=== PATIENT | female | born 1945 | race Caucasian/White ===

== ENCOUNTER 2018-06-02 22:11 | Inpatient (IN) ==
[2018-06-02] MEDS ORDERED: MoRPHine SULFATE 4 MG/ML 1 ML CARP\\VIAL IV STA (22:30)
[2018-06-02] MEDS ORDERED: ONDANSETRON INJ 2 MG/ML 2 ML VIAL IV STA (22:30)
[2018-06-02] MEDS ORDERED: SODIUM CHLORIDE 0.9% 1000ML 1,000 ML IV SCH (22:45)
[2018-06-02 23:19] LABS: Basophils # (auto) 0.01 K/uL (0-0.2); Basophils % (auto) 0.1 %; Hematocrit (blood only) 30.2 % (37-47); Hemoglobin 10.1 g/dL (12.0-16.0); Immature Granulocytes # (auto) 0.03 K/uL (0.00-0.02); Immature Granulocytes % (auto) 0.3 %; Lymphocytes # (auto) 0.48 K/uL (1.2-3.4); Lymphocytes % (auto) 4.4 %; Mean Corpuscular Hgb Conc 33.4 g/dL (32-36); Mean Corpuscular Volume 90.4 fL (80-100); Mean Platelet Volume 9.9 fL (7.4-10.4); Monocytes # (auto) 0.44 K/uL (0.11-0.59); Neutrophils # (auto) 10.04 K/uL (1.4-6.5); Neutrophils % (auto) 91.2 %; Platelet Count 222 K/uL (130-400); RDW Coefficient of Variation 13.6 % (11.5-14.5); RDW Standard Deviation 45.2 fL (36.4-46.3); Red Blood Count 3.34 M/uL (4.2-5.4)
[2018-06-02 23:38] LABS: Alanine Aminotransferase 24 U/L (12-78); Albumin Level 3.1 gm/dl (3.4-5.0); Aspartate Aminotransferase 23 U/L (15-37); BUN Creatinine Ratio 37.9 (10-20); Blood Urea Nitrogen 51 mg/dl (7-18); Calcium 8.4 mg/dl (8.5-10.1); Carbon Dioxide 25 mmol/L (21-32); Chloride 100 mmol/L (98-107); Est GFR (African American) 46.1; Est GFR (Non-African American) 39.8; Glucose 144 mg/dl (70-99); Potassium 3.8 mmol/L (3.5-5.1); Sodium 136 mmol/L (136-145)
[2018-06-02 23:41] LABS: Albumin Globulin Ratio 0.8 (0.9-2); Alkaline Phosphatase 79 U/L (45-117); Bilirubin,Total 0.4 mg/dl (0.2-1); Total Protein 7.1 gm/dl (6.4-8.2)
--- NOTE | 2018-06-03 01:10 | Emergency Department Note ---
History of Present Illness General Chief complaint: Vomiting Stated complaint: VOMITING, STOMACH PAIN Source: patient and family Mode of arrival: ambulatory Limitations: other (dementia) History of Present Illness Maximum Pain Intensity: 9 This patient is a 73-year-old female who presents to the emergency department accompanied by her granddaughters complaining of vomiting and abdominal pain. They report that last night, the patient began to have excessive thirst and started vomiting. Throughout the day today, she has complained of upper abdominal pain and has vomited multiple times. She has been unable to keep anything down. They report she has a history of small bowel obstructions which have presented similarly to this. Her pain is rated a 7/10. She has not had any medication for the symptoms. She states that nothing makes the symptoms better or worse. She has a history of prior hysterectomy for cervical cancer and cholecystectomy. She denies any diarrhea, chest pain or fevers. Home Medications Home Medications Medication Instructions Recorded Confirmed Type alprazolam 0.25 mg PO BID PRN 06/02/18 06/02/18 History atorvastatin 40 mg PO QAM 06/02/18 06/02/18 History cholecalciferol (vitamin D3) 5,000 unit PO QAM 06/02/18 06/02/18 History [Vitamin D3] docusate sodium [Colace] 100 mg PO QAM 06/02/18 06/02/18 History furosemide [Lasix] 20 mg PO QAM 06/02/18 06/02/18 History lisinopril 10 mg PO QAM 06/02/18 06/02/18 History memantine 10 mg PO BID 06/02/18 06/02/18 History potassium chloride 8 meq PO QAM 06/02/18 06/02/18 History triamterene-hydrochlorothiazid 1 tab PO QAM 06/02/18 06/02/18 History Allergies Allergy/AdvReac Type Severity Reaction Status Date / Time alcohol Allergy Severe Anaphylaxis Verified 06/02/18 22:51 Iodinated Contrast- Oral and Allergy Severe THROAT Verified 06/02/18 22:51 IV Dye JENNIFER SANCHEZ Past Med/Surg History Medical History History of hysterectomy Prediabetes Surgical History History of cholecystectomy Social History Communication Ability: Impaired Beliefs That Will Affect Care: None marital status: Current Living Situation: Alone Feels Safe at Home: Yes Safety Concerns: Feels Safe At This Time Smoking Status: Never smoker Hx Substance Use: No Review of Systems A total of 10 systems reviewed and were otherwise negative Physical Exam Vital Signs Vital Signs - 24 hr 06/02/18 22:16 06/02/18 23:46 06/03/18 01:00 Temperature 36.8 C Temperature Source Oral Sepsis Recent Fever Within 48 Hours No Sepsis New/Unexplained Change in Mental Status No Sepsis Action Taken by Nursing No Action Required Pulse Rate 98 H Pulse Rate [Apical] Pulse Rate [Right Finger] 98 H 98 H Pulse Rhythm Regular Pulse Rhythm [Apical] Pulse Rhythm [Right Finger] Regular Regular Pulse Strength Normal Pulse Strength [Apical] Pulse Strength [Right Finger] Normal Normal Respiratory Rate 18 16 16 Respiratory Effort / Characteristics Non-Labored Spontaneous Non-Labored Non-Labored Respiratory Depth Normal Normal Normal Respiratory Pattern Regular Regular Blood Pressure 139/76 Blood Pressure [Right Arm] 155/79 H 148/70 H Blood Pressure Mean 97 Blood Pressure Mean [Right Arm] 104 96 Blood Pressure Position Sitting Blood Pressure Position [Right Arm] Lying Pulse Oximetry 98 96 100 Oxygen Delivery Method Room Air Room Air Room Air 06/03/18 02:06 06/03/18 03:09 06/03/18 04:06 Temperature 36.9 C Temperature Source Oral Sepsis Recent Fever Within 48 Hours Sepsis New/Unexplained Change in Mental Status Sepsis Action Taken by Nursing Pulse Rate 96 H Pulse Rate [Apical] Pulse Rate [Right Finger] 96 H 97 H Pulse Rhythm Pulse Rhythm [Apical] Pulse Rhythm [Right Finger] Regular Regular Pulse Strength Pulse Strength [Apical] Pulse Strength [Right Finger] Normal Normal Respiratory Rate 16 16 18 Respiratory Effort / Characteristics Non-Labored Non-Labored Spontaneous Respiratory Depth Normal Normal Respiratory Pattern Regular Regular Blood Pressure 146/86 H Blood Pressure [Right Arm] 145/68 H 155/80 H Blood Pressure Mean Blood Pressure Mean [Right Arm] 93 105 Blood Pressure Position Blood Pressure Position [Right Arm] Lying Pulse Oximetry 98 96 96 Oxygen Delivery Method Room Air Room Air Room Air 06/03/18 07:20 06/03/18 07:28 06/03/18 11:29 Temperature 37.0 C 36.7 C Temperature Source Oral Oral Sepsis Recent Fever Within 48 Hours Sepsis New/Unexplained Change in Mental Status Sepsis Action Taken by Nursing Pulse Rate Pulse Rate [Apical] 94 H 94 H Pulse Rate [Right Finger] Pulse Rhythm Pulse Rhythm [Apical] Regular Regular Pulse Rhythm [Right Finger] Pulse Strength Pulse Strength [Apical] Normal Normal Pulse Strength [Right Finger] Respiratory Rate 18 18 Respiratory Effort / Characteristics Non-Labored Spontaneous Non-Labored Spontaneous Non-Labored Spontaneous Respiratory Depth Normal Normal Normal Respiratory Pattern Regular Regular Regular Blood Pressure Blood Pressure [Right Arm] 104/68 136/76 Blood Pressure Mean Blood Pressure Mean [Right Arm] 80 96 Blood Pressure Position Blood Pressure Position [Right Arm] Lying Lying Pulse Oximetry 94 94 Oxygen Delivery Method Room Air Room Air Room Air 06/03/18 15:01 Temperature 37.1 C Temperature Source Oral Sepsis Recent Fever Within 48 Hours Sepsis New/Unexplained Change in Mental Status Sepsis Action Taken by Nursing Pulse Rate Pulse Rate [Apical] Pulse Rate [Right Finger] 93 H Pulse Rhythm Pulse Rhythm [Apical] Pulse Rhythm [Right Finger] Regular Pulse Strength Pulse Strength [Apical] Pulse Strength [Right Finger] Normal Respiratory Rate 20 Respiratory Effort / Characteristics Non-Labored Respiratory Depth Normal Respiratory Pattern Regular Blood Pressure Blood Pressure [Right Arm] 149/79 H Blood Pressure Mean Blood Pressure Mean [Right Arm] 102 Blood Pressure Position Blood Pressure Position [Right Arm] Lying Pulse Oximetry 97 Oxygen Delivery Method Room Air VITALS: Vitals are noted on the nurse's note and reviewed by myself. Vital signs stable. GENERAL: This is a 73-year-old female, in no acute distress, nondiaphoretic, well-developed well-nourished. SKIN: The skin was without rashes. EARS: External auditory canals clear, tympanic membranes pearly abdullahi without erythema or effusion bilaterally. EYES: Pupils equal round and reactive to light and accommodation. MOUTH: Mucous membranes moist. Tonsils are not enlarged. Pharynx without erythema or exudate. NECK: Supple without nuchal rigidity. No lymphadenopathy. HEART: Regular rate and rhythm without murmurs gallops or rubs. LUNGS: Clear to auscultation bilaterally without wheezes, rales or rhonchi. No retractions or accessory muscle use. ABDOMEN: Hypoactive bowel sounds. Soft, nondistended. Tenderness to palpation across the upper abdomen. No guarding or rebound tenderness. EXTREMITIES: No pitting edema of the lower extremities. NEURO: Patient was alert and oriented to person and place. Course Consultations Consultation #1: [facility]. Landis [facility] hospitalist Administered Medications Enoxaparin Sodium (Lovenox) 40 mg SQ Q24H NGUYEN Stop: 07/03/18 03:47 Last Admin: 06/03/18 07:56 Dose: 40 mg Documented by: [id number] Sodium Chloride (Nss 1000ml) 1,000 mls @ 125 mls/hr IV .Q8H NGUYEN Stop: 06/04/18 03:47 Last Admin: 06/03/18 15:19 Dose: 125 mls/hr Documented by: [id number] Infusion: 06/03/18 13:06 Dose: 125 mls/hr Documented by: [id number] Infusion: 06/03/18 06:32 Dose: 125 mls/hr Documented by: [id number] Admin: 06/03/18 05:06 Dose: 125 mls/hr Documented by: [id number] Metronidazole (Flagyl) 500 mg in 100 mls @ 100 mls/hr IV Q8H NGUYEN Stop: 06/05/18 03:47 Last Infusion: 06/03/18 13:02 Dose: 0 mls/hr Documented by: [id number] Admin: 06/03/18 11:27 Dose: 100 mls/hr Documented by: [id number] Infusion: 06/03/18 06:15 Dose: 0 mls/hr Documented by: [id number] Admin: 06/03/18 05:06 Dose: 100 mls/hr Documented by: [id number] Lorazepam (Ativan) 0.25 mg in 0.5 mls @ 0.5 mls/min IV Q6HWA PRN PRN Reason: Anxiety/Agitation Stop: 07/03/18 03:47 Last Admin: 06/03/18 12:04 Dose: 0.5 mls/min Documented by: [id number] Ciprofloxacin (Cipro) 400 mg in 200 mls @ 100 mls/hr IV Q12H NGUYEN Stop: 06/05/18 03:59 Last Admin: 06/03/18 16:07 Dose: 100 mls/hr Documented by: [id number] Infusion: 06/03/18 13:02 Dose: 0 mls/hr Documented by: [id number] Admin: 06/03/18 05:07 Dose: 100 mls/hr Documented by: [id number] Discontinued Medications Sodium Chloride (Nss 1000ml) 1,000 mls @ 999 mls/hr IV .Q1H1M NGUYEN Stop: 06/02/18 23:45 Last Infusion: 06/03/18 00:44 Dose: 0 mls/hr Documented by: [id number] Admin: 06/02/18 23:32 Dose: 999 mls/hr Documented by: [id number] Miscellaneous (Patient's Height And/Or Weight Needed) 1 ea N/A Q2H NGUYEN Stop: 07/03/18 03:59 Last Admin: 06/03/18 04:36 Dose: Not Given Documented by: [id number] Morphine Sulfate (Morphine Sulfate) 4 mg IV NOW STA Stop: 06/02/18 22:31 Last Admin: 06/02/18 23:31 Dose: 4 mg Documented by: [id number] Ondansetron HCl (Zofran) 4 mg IV NOW STA Stop: 06/02/18 22:31 Last Admin: 06/02/18 23:32 Dose: 4 mg Documented by: [id number] Medical Decision Making Differential Diagnosis Differential diagnosis includes bowel obstruction, gastroenteritis, pancreatitis, colitis, among others. Home Medications Current Medication List: was personally reviewed by me Laboratory Data Attestation: I reviewed the patient's lab results. Result diagrams: 06/03/18 06:59 06/03/18 06:59 Lab Results 06/02/18 06/02/18 06/02/18 Range/Units 23:00 23:00 23:00 WBC 11.00 H (4.8-10.8) K/uL RBC 3.34 L (4.2-5.4) M/uL Hgb 10.1 L (12.0-16.0) g/dL Hct 30.2 L (37-47) % MCV 90.4 (80-100) fL MCH 30.2 (25-34) pg MCHC 33.4 (32-36) g/dL RDW Std Deviation 45.2 (36.4-46.3) fL RDW Coeff of Harpreet 13.6 (11.5-14.5) % Plt Count 222 (130-400) K/uL MPV 9.9 (7.4-10.4) fL Immature Gran % (Auto) 0.3 % Neut % (Auto) 91.2 % Lymph % (Auto) 4.4 % [place] % (Auto) 4.0 % Eos % (Auto) 0.0 % Baso % (Auto) 0.1 % Immature Gran # (Auto) 0.03 H (0.00-0.02) K/uL Neut # (Auto) 10.04 H (1.4-6.5) K/uL Lymph # (Auto) 0.48 L (1.2-3.4) K/uL [place] # (Auto) 0.44 (0.11-0.59) K/uL Eos # (Auto) 0.00 (0-0.5) K/uL Baso # (Auto) 0.01 (0-0.2) K/uL PT 10.2 (9.0-12.0) Seconds INR 1.0 (0.9-1.1) Sodium 136 (136-145) mmol/L Potassium 3.8 (3.5-5.1) mmol/L Chloride 100 (98-107) mmol/L Carbon Dioxide 25 (21-32) mmol/L Anion Gap 11.0 (3-11) BUN 51 H (7-18) mg/dl Creatinine 1.34 H (0.6-1.2) mg/dl Est Cr Clr Drug Dosing Not Reportable Est GFR ( Amer) 46.1 Est GFR (Non-Af Amer) 39.8 BUN/Creatinine Ratio 37.9 H (10-20) Glucose 144 H (70-99) mg/dl Estimat Average Glucose mg/dl Hemoglobin A1c (4.5-5.6) % Calcium 8.4 L (8.5-10.1) mg/dl Magnesium (1.8-2.4) mg/dl Total Bilirubin 0.4 (0.2-1) mg/dl AST 23 (15-37) U/L ALT 24 (12-78) U/L Alkaline Phosphatase 79 (45-117) U/L Total Protein 7.1 (6.4-8.2) gm/dl Albumin 3.1 L (3.4-5.0) gm/dl Globulin 4.0 (2.5-4.0) gm/dl Albumin/Globulin Ratio 0.8 L (0.9-2) Lipase 178 (73-393) U/L Urine Color Urine Appearance (Clear) Urine pH (4.5-7.5) Ur Specific [place] (1.000-1.030) Urine Protein (Negative) Urine Glucose (UA) (Negative) Urine Ketones (Negative) Urine Blood (Negative) Urine Nitrite (Negative) Urine Bilirubin (Negative) Urine Urobilinogen (Negative) Ur Leukocyte Esterase (Negative) Urine RBC (0-4) /hpf Urine WBC (0-5) /hpf Ur Epithelial Cells (0-5) /lpf Ur Renal Epithelial Cell (0-5) /lpf Urine Bacteria (Negative) Urine Yeast (None Prsent) 06/03/18 06/03/18 06/03/18 Range/Units 06:55 06:59 06:59 WBC 8.15 (4.8-10.8) K/uL RBC 2.98 L (4.2-5.4) M/uL Hgb 9.1 L (12.0-16.0) g/dL Hct 27.1 L (37-47) % MCV 90.9 (80-100) fL MCH 30.5 (25-34) pg MCHC 33.6 (32-36) g/dL RDW Std Deviation 45.9 (36.4-46.3) fL RDW Coeff of Harpreet 13.7 (11.5-14.5) % Plt Count 215 (130-400) K/uL MPV 10.2 (7.4-10.4) fL Immature Gran % (Auto) 0.1 % Neut % (Auto) 88.3 % Lymph % (Auto) 5.9 % [place] % (Auto) 5.6 % Eos % (Auto) 0.0 % Baso % (Auto) 0.1 % Immature Gran # (Auto) 0.01 (0.00-0.02) K/uL Neut # (Auto) 7.19 H (1.4-6.5) K/uL Lymph # (Auto) 0.48 L (1.2-3.4) K/uL [place] # (Auto) 0.46 (0.11-0.59) K/uL Eos # (Auto) 0.00 (0-0.5) K/uL Baso # (Auto) 0.01 (0-0.2) K/uL PT (9.0-12.0) Seconds INR (0.9-1.1) Sodium 136 (136-145) mmol/L Potassium 3.7 (3.5-5.1) mmol/L Chloride 102 (98-107) mmol/L Carbon Dioxide 27 (21-32) mmol/L Anion Gap 8.0 (3-11) BUN 45 H (7-18) mg/dl Creatinine 1.25 H (0.6-1.2) mg/dl Est Cr Clr Drug Dosing 46.1 Est GFR ( Amer) 50.1 Est GFR (Non-Af Amer) 43.2 BUN/Creatinine Ratio 36.3 H (10-20) Glucose 129 H (70-99) mg/dl Estimat Average Glucose 108 mg/dl Hemoglobin A1c 5.4 (4.5-5.6) % Calcium 8.3 L (8.5-10.1) mg/dl Magnesium 1.8 (1.8-2.4) mg/dl Total Bilirubin (0.2-1) mg/dl AST (15-37) U/L ALT (12-78) U/L Alkaline Phosphatase (45-117) U/L Total Protein (6.4-8.2) gm/dl Albumin (3.4-5.0) gm/dl Globulin (2.5-4.0) gm/dl Albumin/Globulin Ratio (0.9-2) Lipase (73-393) U/L Urine Color Urine Appearance (Clear) Urine pH (4.5-7.5) Ur Specific [place] (1.000-1.030) Urine Protein (Negative) Urine Glucose (UA) (Negative) Urine Ketones (Negative) Urine Blood (Negative) Urine Nitrite (Negative) Urine Bilirubin (Negative) Urine Urobilinogen (Negative) Ur Leukocyte Esterase (Negative) Urine RBC (0-4) /hpf Urine WBC (0-5) /hpf Ur Epithelial Cells (0-5) /lpf Ur Renal Epithelial Cell (0-5) /lpf Urine Bacteria (Negative) Urine Yeast (None Prsent) 06/03/18 Range/Units 09:45 WBC (4.8-10.8) K/uL RBC (4.2-5.4) M/uL Hgb (12.0-16.0) g/dL Hct (37-47) % MCV (80-100) fL MCH (25-34) pg MCHC (32-36) g/dL RDW Std Deviation (36.4-46.3) fL RDW Coeff of Harpreet (11.5-14.5) % Plt Count (130-400) K/uL MPV (7.4-10.4) fL Immature Gran % (Auto) % Neut % (Auto) % Lymph % (Auto) % [place] % (Auto) % Eos % (Auto) % Baso % (Auto) % Immature Gran # (Auto) (0.00-0.02) K/uL Neut # (Auto) (1.4-6.5) K/uL Lymph # (Auto) (1.2-3.4) K/uL [place] # (Auto) (0.11-0.59) K/uL Eos # (Auto) (0-0.5) K/uL Baso # (Auto) (0-0.2) K/uL PT (9.0-12.0) Seconds INR (0.9-1.1) Sodium (136-145) mmol/L Potassium (3.5-5.1) mmol/L Chloride (98-107) mmol/L Carbon Dioxide (21-32) mmol/L Anion Gap (3-11) BUN (7-18) mg/dl Creatinine (0.6-1.2) mg/dl Est Cr Clr Drug Dosing Est GFR ( Amer) Est GFR (Non-Af Amer) BUN/Creatinine Ratio (10-20) Glucose (70-99) mg/dl Estimat Average Glucose mg/dl Hemoglobin A1c (4.5-5.6) % Calcium (8.5-10.1) mg/dl Magnesium (1.8-2.4) mg/dl Total Bilirubin (0.2-1) mg/dl AST (15-37) U/L ALT (12-78) U/L Alkaline Phosphatase (45-117) U/L Total Protein (6.4-8.2) gm/dl Albumin (3.4-5.0) gm/dl Globulin (2.5-4.0) gm/dl Albumin/Globulin Ratio (0.9-2) Lipase (73-393) U/L Urine Color Yellow Urine Appearance Slightly Cloudy (Clear) Urine pH 6.0 (4.5-7.5) Ur Specific [place] 1.020 (1.000-1.030) Urine Protein Negative (Negative) Urine Glucose (UA) Negative (Negative) Urine Ketones Negative (Negative) Urine Blood 3+ H (Negative) Urine Nitrite Negative (Negative) Urine Bilirubin Negative (Negative) Urine Urobilinogen Negative (Negative) Ur Leukocyte Esterase 1+ H (Negative) Urine RBC 10-30 H (0-4) /hpf Urine WBC >30 H (0-5) /hpf Ur Epithelial Cells 20-30 H (0-5) /lpf Ur Renal Epithelial Cell 0-5 (0-5) /lpf Urine Bacteria 4+ H (Negative) Urine Yeast Present H (None Prsent) Imaging Data Attestation: I personally reviewed and interpreted this imaging study as follows: Radiologist's Impression: CT ABDOMEN & PELVIS Without Contrast: Distended small bowel loops and air-fluid levels. Could be from evolving small bowel obstruction. Followup will clarify. There may be some edema related to bowel loops in the right lower abdomen. Thickened and distended esophagus containing debris. Gastric distention. Appendix not identified. Cannot confirm a normal appendix or exclude appendiceal pathology. Hysterectomy. Radiologist: Milton Amaro M.D. Blood Pressure Blood Pressure Findings: Elevated blood pressure Blood Pressure Disposition: further management by hospitalist MDM Narrative The patient is a 73-year-old female who presents today complaining of abdominal pain similar to previous. Labs revealed a mild leukocytosis. Patient's creatinine is slightly elevated from baseline at 1.3. CT scan showed evidence of a developing small bowel obstruction. NG tube was inserted and placed on low intermittent suction. Patient's pain was treated with morphine and was given Zofran for nausea. [facility]. Attending Attestation: I Tolu Hayes MD independently saw and evaluated this patient and agree with history and physical is otherwise documented by the physician application assistant. See their note for full details. Impression & Plan Small bowel obstruction Discharge Plan Visit Data *Final* Discharge Date/Time: 06/03/18 03:09 Chief Complaint: Vomiting Stated Complaint: VOMITING, STOMACH PAIN ED Provider: Tolu Hayes ED Midlevel Provider: Sherita Lyons Discharge Problem: Small bowel obstruction Patient Disposition: Admitted As Inpatient Discharge Instructions Interventions: ED Discharge Assessment Last Done: 06/03/18 03:09
--- NOTE | 2018-06-03 02:28 | History & Physical Report ---
Date of Service June 03, 2018 Assessment & Plan (1) Small bowel obstruction: 73-year-old female who presents with intractable vomiting and abdominal pain, found to have small bowel obstruction on CT. Per report, patient has had at least 10 instances in her lifetime. Increased risk factors include prior abdominal surgeries. [facility] -Nonurgent consult general surgery placed -N.p.o. -NG tube placed successfully in the ED -Zofran PRN for nausea -Dilaudid as needed for pain -ciprofloxacin and Flagyl empiric antibiotics in setting of mild leukocytosis and obstruction. FEN/GI: NSS 125 ml/hr DVT ppx: Lovenox every 24 hours, SCDs CODE STATUS: Full code as discussed with granddaughters, although they state they are not sure of patient's wishes. Patient's daughter is POA. DISPO: MedSurg Present on Admission?: Yes (2) CKD (chronic kidney disease) stage 3, GFR 30-59 ml/min: Elevated creatinine in setting of dehydration and vomiting. Fluids as above. Follow BMP. Avoid nephrotoxic agents. (3) Elevated serum creatinine: As above (4) Vomiting: Zofran as needed as above (5) Benign essential hypertension: Will hold home NIYA inhibitor and triamterene hydrochlorothiazide in light of elevated creatinine -Hydralazine 10 mg IV every 4 hours as needed for systolic blood pressure over 170 or diastolic blood pressure over 100. (6) Dementia: Hold home p.o. memantine. Sitter as needed. -Granddaughter states she does become easily confused, her phone number is available on patient's chart and she should be contacted to help orient patient. (7) Anxiety: Hold home p.o. alprazolam. -Ativan as needed, qhs. History of Present Illness Chief Complaint: Intractable vomiting, abdominal pain Primary Care Provider: Earle Griffin Johnson Madrigal is a 73-year-old female with past medical history of CKD stage III, history of cervical cancer recurrent status post total hysterectomy, status post cholecystectomy, hypertension, history of lower left extremity DVT, with advanced dementia who presents to the emergency room with HER-2 granddaughters due to intractable vomiting. Vomiting and abdominal pain began suddenly the night prior to admission. Per granddaughters, patient has had at least 10 episodes of small bowel obstruction in her lifetime. 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 No fevers or chills with this, no syncope, no chest pain. Decreased p.o. intake. No diarrhea. Past medical history: As above Past surgical history: As above Social history: Lives at home with 1 of her granddaughters, other granddaughter lives 3 doors down and her daughter also lives close. Does not drink alcohol or smoke. Severely demented. Allergies Allergy/AdvReac Type Severity Reaction Status Date / Time alcohol Allergy Severe Anaphylaxis Verified 06/02/18 22:51 Iodinated Contrast- Oral and Allergy Severe THROAT Verified 06/02/18 22:51 IV Dye SWELLS, HIVES Home Medications Home Medications Medication Instructions Recorded Confirmed Type alprazolam 0.25 mg PO BID PRN 06/02/18 06/02/18 History atorvastatin 40 mg PO QAM 06/02/18 06/02/18 History cholecalciferol (vitamin D3) 5,000 unit PO QAM 06/02/18 06/02/18 History [Vitamin D3] docusate sodium [Colace] 100 mg PO QAM 06/02/18 06/02/18 History furosemide [Lasix] 20 mg PO QAM 06/02/18 06/02/18 History lisinopril 10 mg PO QAM 06/02/18 06/02/18 History memantine 10 mg PO BID 06/02/18 06/02/18 History potassium chloride 8 meq PO QAM 06/02/18 06/02/18 History triamterene-hydrochlorothiazid 1 tab PO QAM 06/02/18 06/02/18 History Past Med/Surg History Medical History History of hysterectomy Prediabetes Surgical History History of cholecystectomy Social History Preferred Language: Serbian Communication Ability: Effective Pharmaceutical Development Technician Required: No Beliefs That Will Affect Care: None Current Living Situation: Alone Feels Safe at Home: Yes Safety Concerns: Feels Safe At This Time Smoking Status: Never smoker Hx Substance Use: No Review of Systems Unobtainable due to cognitive status Physical Exam Vital Signs (Past 24 Hours): Last Vital Signs Temp 36.8 C 06/02/18 22:16 Pulse 96 H 06/03/18 02:06 Resp 16 06/03/18 02:06 BP 145/68 H 06/03/18 02:06 Pulse Ox 98 06/03/18 02:06 Physical Exam: Vitals noted as above and within normal limits with the exception of hypertension. GENERAL: Somnolent but arousable and , nontoxic-appearing, in no distress. Granddaughter is at bedside. States she has severe dementia. HENT: Normocephalic, atraumatic. Nasogastric tube in place. NECK: Supple. Full range of motion. No JVD RESPIRATORY: Clear to auscultation. Normal work of breathing. CARDIAC: Regular rate, normal rhythm. Extremities warm and well perfused, 2+ radial pulses bilaterally; 2+ posterior tibialis pulses bilaterally. ABDOMEN: Soft, non-distended. No masses. Bowel sounds are hypoactive. LOWER EXTREMITIES: Inspection of calves reveal left larger than right, granddaughter states this is chronic. They are non-tender. Trace edema. No discoloration. NEURO: Not able to follow commands at present time.. . . SKIN: Rash not present. No jaundice noted. Significant lesions not present. PSYCH: Dementia. Exam as done by Nivia Domingo MD, Immigration Case Manager. Results & Data Laboratory Results 06/02/18 06/02/18 Range/Units 23:00 23:00 WBC 11.00 H (4.8-10.8) K/uL RBC 3.34 L (4.2-5.4) M/uL Hgb 10.1 L (12.0-16.0) g/dL Hct 30.2 L (37-47) % MCV 90.4 (80-100) fL MCH 30.2 (25-34) pg MCHC 33.4 (32-36) g/dL RDW Std Deviation 45.2 (36.4-46.3) fL RDW Coeff of Harpreet 13.6 (11.5-14.5) % Plt Count 222 (130-400) K/uL MPV 9.9 (7.4-10.4) fL Immature Gran % (Auto) 0.3 % Neut % (Auto) 91.2 % Lymph % (Auto) 4.4 % [place] % (Auto) 4.0 % Eos % (Auto) 0.0 % Baso % (Auto) 0.1 % Immature Gran # (Auto) 0.03 H (0.00-0.02) K/uL Neut # (Auto) 10.04 H (1.4-6.5) K/uL Lymph # (Auto) 0.48 L (1.2-3.4) K/uL [place] # (Auto) 0.44 (0.11-0.59) K/uL Eos # (Auto) 0.00 (0-0.5) K/uL Baso # (Auto) 0.01 (0-0.2) K/uL Sodium 136 (136-145) mmol/L Potassium 3.8 (3.5-5.1) mmol/L Chloride 100 (98-107) mmol/L Carbon Dioxide 25 (21-32) mmol/L Anion Gap 11.0 (3-11) BUN 51 H (7-18) mg/dl Creatinine 1.34 H (0.6-1.2) mg/dl Est Cr Clr Drug Dosing Not Reportable Est GFR ( Amer) 46.1 Est GFR (Non-Af Amer) 39.8 BUN/Creatinine Ratio 37.9 H (10-20) Glucose 144 H (70-99) mg/dl Calcium 8.4 L (8.5-10.1) mg/dl Total Bilirubin 0.4 (0.2-1) mg/dl AST 23 (15-37) U/L ALT 24 (12-78) U/L Alkaline Phosphatase 79 (45-117) U/L Total Protein 7.1 (6.4-8.2) gm/dl Albumin 3.1 L (3.4-5.0) gm/dl Globulin 4.0 (2.5-4.0) gm/dl Albumin/Globulin Ratio 0.8 L (0.9-2) Lipase 178 (73-393) U/L Diagnostic Findings CT ABDOMEN & PELVIS Without Contrast: Distended small bowel loops and air-fluid levels. Could be from evolving small bowel obstruction. Followup will clarify. There may be some edema related to bowel loops in the right lower abdomen. Thickened and distended esophagus containing debris. Gastric distention. Appendix not identified. Cannot confirm a normal appendix or exclude appendiceal pathology. Hysterectomy. Radiologist: Milton Amaro M.D. Medications Administered 4 mg morphine, 4 mg Zofran, 1 L bolus NSS. ECG Change: no significant change Supervising Physician Co-Signing Physician Notes Attending addendum: I have physically seen this patient, have supervised the medical residents activities, and agree with the H&P unless as otherwise noted. Assessment and Plan: Recurrent small bowel obstruction-- Admit to [facility]. NPO NSS 125 mL's per hour Pantoprazole 40 mg IV daily. Zofran 4 mg IV every 6 hours as needed. Cipro 400 mg IV every 12 hours. Flagyl 500 mg IV every 8 hours. Acetaminophen 1000mg IV every 8 hours as needed mild pain or temperature. Consult general surgery. Hypertension/acute kidney injury-- Hold furosemide, lisinopril and triamterene HCTZ. Hydralazine 10 mg IV every 4 hours IV as needed. Remainder of orders and notations as noted. Resident Activity Tracking Resident Involvement: Resident Care Provided Care Provided: Adult Hospital Medicine
[2018-06-03] MEDS ORDERED: ONDANSETRON INJ 2 MG/ML 2 ML VIAL IV PRN (03:48)
[2018-06-03] MEDS ORDERED: HYDROmorphone INJ 1 MG/ML SYRINGE IV PRN (03:48)
[2018-06-03] MEDS ORDERED: HydrALAZINE HCL 20 MG/ML VIAL IV PRN (03:48)
[2018-06-03] MEDS ORDERED: PATIENT'S HEIGHT AND/OR WEIGHT NEEDED SCH (04:00)
[2018-06-03 04:31] LABS: Prothrombin Time 10.2 Seconds (9.0-12.0)
[2018-06-03] MEDS: metroNIDAZOLE 500 MG/100 ML BAG IV SCH ×3 (05:06→20:38)
[2018-06-03] MEDS: SODIUM CHLORIDE 0.9% 1000ML 1,000 ML IV SCH ×2 (05:06→15:19)
[2018-06-03] MEDS: CIPROFLOXACIN 400 MG/200 ML BAG IV SCH ×2 (05:07→16:07)
--- NOTE | 2018-06-03 06:46 | CT Scan Report ---
CT SCAN OF THE ABDOMEN AND PELVIS WITHOUT CONTRAST CLINICAL HISTORY: Abdominal pain and vomiting. History of small bowel obstruction. COMPARISON STUDY: No previous studies for comparison. TECHNIQUE: CT scan of the abdomen and pelvis was performed from the lung bases to the proximal femurs . Images are reviewed in the axial, sagittal, and coronal planes. IV contrast was not administered fo r this examination. A dose lowering technique was utilized adhering to the principles of ALARA. CT DOSE: 1574.23 mGy.cm FINDINGS: Lower chest: There is left lower lobe atelectasis/consolidation. Right lower lobe atelectatic changes are also evident. There is a small hiatal hernia. There is a trace left pleural effusion. Liver: The unenhanced liver is normal in size, contour, and attenuation. There is no intrahepatic javier iary ductal dilatation. Gallbladder: Not visualized and presumed surgically absent Spleen: Normal in size and attenuation. Pancreas: Unremarkable. Adrenal glands: Unremarkable. Kidneys: No renal, ureteral, or bladder calculi are visualized. There is a 12 mm left renal cyst. Bowel: There are multiple dilated small bowel loops containing air-fluid levels. The colon is relativ alanis decompressed. The findings are consistent with a small bowel obstruction. There is minimal infilt ration of the mesenteric fat within the right lower quadrant. There are multiple colonic diverticula. There are no findings to indicate acute diverticulitis. The appendix is not visualized. Peritoneum: There is no intraperitoneal free air or abdominal ascites. Vasculature: The abdominal aorta is normal in course and caliber. Adenopathy: None. Pelvic viscera: The uterus is surgically absent. The bladder is mildly distended. Skeletal structures: No destructive osseous lesions are seen. IMPRESSION: 1. Small bowel obstructive pattern with mild right lower quadrant mesenteric edema 2. Hiatal hernia with debris contained within distal esophagus 3. No renal, ureteral, or bladder calculi identified 4. Diverticulosis. No evidence of acute diverticulitis 5. Nonvisualization of the appendix 6. Surgically absent gallbladder and uterus Electronically signed by: Darrell Mcgovern M.D. 06/03/2018 6:44 AM
[2018-06-03] MEDS: ENOXAPARIN INJ 40 MG/0.4 ML SYR SQ SCH (07:56)
[2018-06-03 08:57] LABS: Basophils # (auto) 0.01 K/uL (0-0.2); Basophils % (auto) 0.1 %; Hematocrit (blood only) 27.1 % (37-47); Hemoglobin 9.1 g/dL (12.0-16.0); Immature Granulocytes # (auto) 0.01 K/uL (0.00-0.02); Immature Granulocytes % (auto) 0.1 %; Lymphocytes # (auto) 0.48 K/uL (1.2-3.4); Lymphocytes % (auto) 5.9 %; Mean Corpuscular Volume 90.9 fL (80-100); Mean Platelet Volume 10.2 fL (7.4-10.4); Monocytes # (auto) 0.46 K/uL (0.11-0.59); Monocytes % (auto) 5.6 %; Neutrophils # (auto) 7.19 K/uL (1.4-6.5); Neutrophils % (auto) 88.3 %; Platelet Count 215 K/uL (130-400); RDW Coefficient of Variation 13.7 % (11.5-14.5); RDW Standard Deviation 45.9 fL (36.4-46.3); Red Blood Count 2.98 M/uL (4.2-5.4); White Blood Count 8.15 K/uL (4.8-10.8)
[2018-06-03 08:59] LABS: BUN Creatinine Ratio 36.3 (10-20); Calcium 8.3 mg/dl (8.5-10.1); Creatinine Clr Calc Pharmacy 46.1 ml/min; Est GFR (African American) 50.1; Est GFR (Non-African American) 43.2; Magnesium 1.8 mg/dl (1.8-2.4); Potassium 3.7 mmol/L (3.5-5.1)
[2018-06-03 09:05] LABS: Mean Corpuscular Hgb Conc 33.6 g/dL (32-36)
[2018-06-03 09:51] LABS: Estimated Average Glucose 108 mg/dl; Hemoglobin A1C 5.4 % (4.5-5.6)
[2018-06-03 10:15] LABS: Appearance Urine Slightly Cloudy (Clear); Bilirubin Urine Negative (Negative); Blood Urine 3+ (Negative); Color Urine Yellow; Glucose Urine UA Negative (Negative); Ketones Urine Negative (Negative); Leukocyte Esterase Urine 1+ (Negative); Nitrite Urine Negative (Negative); Protein Urine Negative (Negative); Urobilinogen Urine Negative (Negative)
[2018-06-03 10:25] LABS: Bacteria Urine 4+ (Negative); Epithelial Cell Urine 20-30 /lpf (0-5); WBC Urine >30 /hpf (0-5)
[2018-06-03 10:27] LABS: Renal Epithelial Cells Urine 0-5 /lpf (0-5)
[2018-06-03] MEDS: LORazepam 0.25 MG/0.5 ML VIAL IV PRN ×2 (12:04→18:43)
[2018-06-03] MEDS ORDERED: CIPROFLOXACIN 400 MG/200 ML BAG IV SCH (16:00)
--- NOTE | 2018-06-03 17:03 | Hospitalist Progress Note ---
Date of Service June 03, 2018 Assessment & Plan (1) Small bowel obstruction: (2) CKD (chronic kidney disease) stage 3, GFR 30-59 ml/min: (3) Elevated serum creatinine: (4) Vomiting: (5) Benign essential hypertension: (6) Dementia: (7) Anxiety: 73-year-old female Was admitted because of a bowel obstruction associated with intractable vomiting and abdominal pain, Per report, patient has had at least 10 instances Of bowel obstructionin her lifetime. Increased risk factors include prior abdominal surgeries. Bowel obstruction, Because patient no more nausea vomiting abdominal is soft nontender, Although the NG tube was self removed, will not to reinsert it for now Need to reinsert if patient has recurrent symptom of nausea vomiting abdominal pain Follow-up surgical input -N.p.o. -NG tube placed successfully in the ED -Zofran PRN for nausea -Dilaudid as needed for pain -Continue ciprofloxacin and Flagyl empiric antibiotics in setting of mild leukocytosis and obstruction. Acute kidney injuryon CKD, improving Possible UTI: It is covered by [employer], We will follow culture results Mild accelerated hypertension, will continue follow-up Dementia anxiety, stable continue current medication CODE STATUS: Full code Family name is Rhonda #[id number], Was updated over the phone (5) Benign essential hypertension: Subjective Was on NG tube suctioning, however per report after arriving to the floor from the emergency room there were only 50 ml came out Patient has no nausea vomiting, Denies abdominal pain Later nursing staff reported patient removed NG tube by herself Review of system is limited because patient has dementia No fever and chill Denies chest pain Denies cough or sputum Physical Exam Vital Signs (Past 24 Hours): Last Vital Signs Temp 37.1 C 06/03/18 15:01 Pulse 93 H 06/03/18 15:01 Resp 20 06/03/18 15:01 BP 149/79 H 06/03/18 15:01 Pulse Ox 97 06/03/18 15:01 Physical Exam: General Appearance: WD/WN, pleasant, and mild confused, no apparent distress, NG tube was in place, Eyes: normal inspection, PERRL, EOMI, sclerae normal ENT: normal ENT inspection, hearing grossly normal, pharynx normal Neck: supple, no adenopathy, thyroid normal, no JVD, no carotid bruits, trachea midline Respiratory/Chest: chest non-tender, normal breath sounds, no respiratory distress, no accessory muscle use, breath sounds, rales, wheezing Cardiovascular: regular rate, rhythm, no JVD, no murmur Abdomen: bowel sound+, non tender, soft, no organomegaly, Extremities: normal range of motion, non-tender, normal inspection, no pedal edema, no calf tenderness, normal capillary refill, pelvis stable, joint has no limited range of motion, capillary refill is normal, no cyanosis clubbing Neurologic/Psychiatric: central office operator II-XII nml as tested, no motor/sensory deficits, alert, normal mood/affect, Skin: normal color, warm/dry, no rash Lymphatic: no adenopathy Results & Data Laboratory Results Laboratory Results - last 24 hr 06/02/18 06/02/18 06/02/18 23:00 23:00 23:00 WBC 11.00 H RBC 3.34 L Hgb 10.1 L Hct 30.2 L MCV 90.4 MCH 30.2 MCHC 33.4 RDW Std Deviation 45.2 RDW Coeff of Harpreet 13.6 Plt Count 222 MPV 9.9 Immature Gran % (Auto) 0.3 Neut % (Auto) 91.2 Lymph % (Auto) 4.4 [place] % (Auto) 4.0 Eos % (Auto) 0.0 Baso % (Auto) 0.1 Immature Gran # (Auto) 0.03 H Neut # (Auto) 10.04 H Lymph # (Auto) 0.48 L [place] # (Auto) 0.44 Eos # (Auto) 0.00 Baso # (Auto) 0.01 PT 10.2 INR 1.0 Sodium 136 Potassium 3.8 Chloride 100 Carbon Dioxide 25 Anion Gap 11.0 BUN 51 H Creatinine 1.34 H Est Cr Clr Drug Dosing Not Reportable Est GFR ( Amer) 46.1 Est GFR (Non-Af Amer) 39.8 BUN/Creatinine Ratio 37.9 H Glucose 144 H Estimat Average Glucose Hemoglobin A1c Calcium 8.4 L Magnesium Total Bilirubin 0.4 AST 23 ALT 24 Alkaline Phosphatase 79 Total Protein 7.1 Albumin 3.1 L Globulin 4.0 Albumin/Globulin Ratio 0.8 L Lipase 178 Urine Color Urine Appearance Urine pH Ur Specific Bernard Urine Protein Urine Glucose (UA) Urine Ketones Urine Blood Urine Nitrite Urine Bilirubin Urine Urobilinogen Ur Leukocyte Esterase Urine RBC Urine WBC Ur Epithelial Cells Ur Renal Epithelial Cell Urine Bacteria Urine Yeast 06/03/18 06/03/18 06/03/18 06:55 06:59 06:59 WBC 8.15 RBC 2.98 L Hgb 9.1 L Hct 27.1 L MCV 90.9 MCH 30.5 MCHC 33.6 RDW Std Deviation 45.9 RDW Coeff of Harpreet 13.7 Plt Count 215 MPV 10.2 Immature Gran % (Auto) 0.1 Neut % (Auto) 88.3 Lymph % (Auto) 5.9 [place] % (Auto) 5.6 Eos % (Auto) 0.0 Baso % (Auto) 0.1 Immature Gran # (Auto) 0.01 Neut # (Auto) 7.19 H Lymph # (Auto) 0.48 L [place] # (Auto) 0.46 Eos # (Auto) 0.00 Baso # (Auto) 0.01 PT INR Sodium 136 Potassium 3.7 Chloride 102 Carbon Dioxide 27 Anion Gap 8.0 BUN 45 H Creatinine 1.25 H Est Cr Clr Drug Dosing 46.1 Est GFR ( Amer) 50.1 Est GFR (Non-Af Amer) 43.2 BUN/Creatinine Ratio 36.3 H Glucose 129 H Estimat Average Glucose 108 Hemoglobin A1c 5.4 Calcium 8.3 L Magnesium 1.8 Total Bilirubin AST ALT Alkaline Phosphatase Total Protein Albumin Globulin Albumin/Globulin Ratio Lipase Urine Color Urine Appearance Urine pH Ur Specific Bernard Urine Protein Urine Glucose (UA) Urine Ketones Urine Blood Urine Nitrite Urine Bilirubin Urine Urobilinogen Ur Leukocyte Esterase Urine RBC Urine WBC Ur Epithelial Cells Ur Renal Epithelial Cell Urine Bacteria Urine Yeast 06/03/18 09:45 WBC RBC Hgb Hct MCV MCH MCHC RDW Std Deviation RDW Coeff of Harpreet Plt Count MPV Immature Gran % (Auto) Neut % (Auto) Lymph % (Auto) [place] % (Auto) Eos % (Auto) Baso % (Auto) Immature Gran # (Auto) Neut # (Auto) Lymph # (Auto) [place] # (Auto) Eos # (Auto) Baso # (Auto) PT INR Sodium Potassium Chloride Carbon Dioxide Anion Gap BUN Creatinine Est Cr Clr Drug Dosing Est GFR ( Amer) Est GFR (Non-Af Amer) BUN/Creatinine Ratio Glucose Estimat Average Glucose Hemoglobin A1c Calcium Magnesium Total Bilirubin AST ALT Alkaline Phosphatase Total Protein Albumin Globulin Albumin/Globulin Ratio Lipase Urine Color Yellow Urine Appearance Slightly Cloudy Urine pH 6.0 Ur Specific Bernard 1.020 Urine Protein Negative Urine Glucose (UA) Negative Urine Ketones Negative Urine Blood 3+ H Urine Nitrite Negative Urine Bilirubin Negative Urine Urobilinogen Negative Ur Leukocyte Esterase 1+ H Urine RBC 10-30 H Urine WBC >30 H Ur Epithelial Cells 20-30 H Ur Renal Epithelial Cell 0-5 Urine Bacteria 4+ H Urine Yeast Present H
--- NOTE | 2018-06-03 19:35 | Surgery Consultation ---
Date of Consultation June 03, 2018 Assessment & Plan (1) Small bowel obstruction: This patient had nausea and vomiting associated with a CT scan demonstrating possible small bowel obstruction with dilated small bowel loops. She no longer has abdominal pain and has not had no vomiting since she arrived. Obtaining a very accurate history was difficult. She did have a small bowel movement earlier today. I would continue with conservative measures and keeping her n.p.o. for now. If she continues to have bowel movements or pass gas then her diet can be advanced as tolerated. Present on Admission?: Yes History of Present Illness Reason for Consultation: Nausea vomiting and possible small bowel obstruction Requesting Physician: Jaime Smith MD, PhD, [facility] Attending Physician: Jaime Smith MD, PhD, [facility] History of Present Illness I been asked by Dr. Smith to see this 73-year-old female who has severe dementia. She was not able to provide a history and so the history was obtained from nursing and from the chart. The patient has been admitted on multiple occasions with bowel obstruction all of which have resolved spontaneously. She had some nausea and vomiting with abdominal pain over the last 1-2 days. She underwent a CT scan that demonstrated dilated small bowel loops but no transition point was noted. She initially had an NG tube placed but she has removed it. She she had the present denies abdominal pain. She has not had any nausea or vomiting. She had a small bowel movement earlier today. The only abdominal surgery listed was a cholecystectomy. She could not relay whether she had any other operations. Allergies Allergy/AdvReac Type Severity Reaction Status Date / Time alcohol Allergy Severe Anaphylaxis Verified 06/02/18 22:51 Iodinated Contrast- Oral and Allergy Severe THROAT Verified 06/02/18 22:51 IV Dye JENNIFER SANCHEZ Home Medications Home Medications Medication Instructions Recorded Confirmed Type alprazolam 0.25 mg PO BID PRN 06/02/18 06/02/18 History atorvastatin 40 mg PO QAM 06/02/18 06/02/18 History cholecalciferol (vitamin D3) 5,000 unit PO QAM 06/02/18 06/02/18 History [Vitamin D3] docusate sodium [Colace] 100 mg PO QAM 06/02/18 06/02/18 History furosemide [Lasix] 20 mg PO QAM 06/02/18 06/02/18 History lisinopril 10 mg PO QAM 06/02/18 06/02/18 History memantine 10 mg PO BID 06/02/18 06/02/18 History potassium chloride 8 meq PO QAM 06/02/18 06/02/18 History triamterene-hydrochlorothiazid 1 tab PO QAM 06/02/18 06/02/18 History Patient History Medical History History of hysterectomy Prediabetes Surgical History History of cholecystectomy Social History Communication Ability: Impaired Beliefs That Will Affect Care: None marital status: Current Living Situation: Alone Feels Safe at Home: Yes Safety Concerns: Feels Safe At This Time Smoking Status: Never smoker Hx Substance Use: No Review of Systems Difficult to obtain due to the patient's dementia Physical Exam Vital Signs (Past 24 Hours): Last Vital Signs Temp 37.1 C 06/03/18 15:01 Pulse 93 H 06/03/18 15:01 Resp 20 06/03/18 15:01 BP 149/79 H 06/03/18 15:01 Pulse Ox 97 06/03/18 15:01 Constitutional: no acute distress Neck: trachea midline, no thyromegaly Respiratory: normal respiratory effort, lungs clear to auscultation Cardiovascular: Rate/Rhythm: regular rate and regular rhythm Gastrointestinal (Abdomen): Inspection/Auscultation: normal bowel sounds; abdomen not distended Percussion/Palpation: abdomen soft; abdomen nontender Lymphatic: no cervical lymphadenopathy Results & Data Laboratory Results 06/03/18 06/03/18 06/03/18 Range/Units 09:45 06:59 06:59 WBC 8.15 (4.8-10.8) K/uL RBC 2.98 L (4.2-5.4) M/uL Hgb 9.1 L (12.0-16.0) g/dL Hct 27.1 L (37-47) % MCV 90.9 (80-100) fL MCH 30.5 (25-34) pg MCHC 33.6 (32-36) g/dL RDW Std Deviation 45.9 (36.4-46.3) fL RDW Coeff of Harpreet 13.7 (11.5-14.5) % Plt Count 215 (130-400) K/uL MPV 10.2 (7.4-10.4) fL Immature Gran % (Auto) 0.1 % Neut % (Auto) 88.3 % Lymph % (Auto) 5.9 % [place] % (Auto) 5.6 % Eos % (Auto) 0.0 % Baso % (Auto) 0.1 % Immature Gran # (Auto) 0.01 (0.00-0.02) K/uL Neut # (Auto) 7.19 H (1.4-6.5) K/uL Lymph # (Auto) 0.48 L (1.2-3.4) K/uL [place] # (Auto) 0.46 (0.11-0.59) K/uL Eos # (Auto) 0.00 (0-0.5) K/uL Baso # (Auto) 0.01 (0-0.2) K/uL PT (9.0-12.0) Seconds INR (0.9-1.1) Sodium 136 (136-145) mmol/L Potassium 3.7 (3.5-5.1) mmol/L Chloride 102 (98-107) mmol/L Carbon Dioxide 27 (21-32) mmol/L Anion Gap 8.0 (3-11) BUN 45 H (7-18) mg/dl Creatinine 1.25 H (0.6-1.2) mg/dl Est Cr Clr Drug Dosing 46.1 Est GFR ( Amer) 50.1 Est GFR (Non-Af Amer) 43.2 BUN/Creatinine Ratio 36.3 H (10-20) Glucose 129 H (70-99) mg/dl Estimat Average Glucose mg/dl Hemoglobin A1c (4.5-5.6) % Calcium 8.3 L (8.5-10.1) mg/dl Magnesium 1.8 (1.8-2.4) mg/dl Total Bilirubin (0.2-1) mg/dl AST (15-37) U/L ALT (12-78) U/L Alkaline Phosphatase (45-117) U/L Total Protein (6.4-8.2) gm/dl Albumin (3.4-5.0) gm/dl Globulin (2.5-4.0) gm/dl Albumin/Globulin Ratio (0.9-2) Lipase (73-393) U/L Urine Color Yellow Urine Appearance Slightly Cloudy (Clear) Urine pH 6.0 (4.5-7.5) Ur Specific [place] 1.020 (1.000-1.030) Urine Protein Negative (Negative) Urine Glucose (UA) Negative (Negative) Urine Ketones Negative (Negative) Urine Blood 3+ H (Negative) Urine Nitrite Negative (Negative) Urine Bilirubin Negative (Negative) Urine Urobilinogen Negative (Negative) Ur Leukocyte Esterase 1+ H (Negative) Urine RBC 10-30 H (0-4) /hpf Urine WBC >30 H (0-5) /hpf Ur Epithelial Cells 20-30 H (0-5) /lpf Ur Renal Epithelial Cell 0-5 (0-5) /lpf Urine Bacteria 4+ H (Negative) Urine Yeast Present H (None Prsent) 06/03/18 06/02/18 06/02/18 Range/Units 06:55 23:00 23:00 WBC (4.8-10.8) K/uL RBC (4.2-5.4) M/uL Hgb (12.0-16.0) g/dL Hct (37-47) % MCV (80-100) fL MCH (25-34) pg MCHC (32-36) g/dL RDW Std Deviation (36.4-46.3) fL RDW Coeff of Harpreet (11.5-14.5) % Plt Count (130-400) K/uL MPV (7.4-10.4) fL Immature Gran % (Auto) % Neut % (Auto) % Lymph % (Auto) % [place] % (Auto) % Eos % (Auto) % Baso % (Auto) % Immature Gran # (Auto) (0.00-0.02) K/uL Neut # (Auto) (1.4-6.5) K/uL Lymph # (Auto) (1.2-3.4) K/uL [place] # (Auto) (0.11-0.59) K/uL Eos # (Auto) (0-0.5) K/uL Baso # (Auto) (0-0.2) K/uL PT 10.2 (9.0-12.0) Seconds INR 1.0 (0.9-1.1) Sodium 136 (136-145) mmol/L Potassium 3.8 (3.5-5.1) mmol/L Chloride 100 (98-107) mmol/L Carbon Dioxide 25 (21-32) mmol/L Anion Gap 11.0 (3-11) BUN 51 H (7-18) mg/dl Creatinine 1.34 H (0.6-1.2) mg/dl Est Cr Clr Drug Dosing Not Reportable Est GFR ( Amer) 46.1 Est GFR (Non-Af Amer) 39.8 BUN/Creatinine Ratio 37.9 H (10-20) Glucose 144 H (70-99) mg/dl Estimat Average Glucose 108 mg/dl Hemoglobin A1c 5.4 (4.5-5.6) % Calcium 8.4 L (8.5-10.1) mg/dl Magnesium (1.8-2.4) mg/dl Total Bilirubin 0.4 (0.2-1) mg/dl AST 23 (15-37) U/L ALT 24 (12-78) U/L Alkaline Phosphatase 79 (45-117) U/L Total Protein 7.1 (6.4-8.2) gm/dl Albumin 3.1 L (3.4-5.0) gm/dl Globulin 4.0 (2.5-4.0) gm/dl Albumin/Globulin Ratio 0.8 L (0.9-2) Lipase 178 (73-393) U/L Urine Color Urine Appearance (Clear) Urine pH (4.5-7.5) Ur Specific [place] (1.000-1.030) Urine Protein (Negative) Urine Glucose (UA) (Negative) Urine Ketones (Negative) Urine Blood (Negative) Urine Nitrite (Negative) Urine Bilirubin (Negative) Urine Urobilinogen (Negative) Ur Leukocyte Esterase (Negative) Urine RBC (0-4) /hpf Urine WBC (0-5) /hpf Ur Epithelial Cells (0-5) /lpf Ur Renal Epithelial Cell (0-5) /lpf Urine Bacteria (Negative) Urine Yeast (None Prsent) 06/02/18 Range/Units 23:00 WBC 11.00 H (4.8-10.8) K/uL RBC 3.34 L (4.2-5.4) M/uL Hgb 10.1 L (12.0-16.0) g/dL Hct 30.2 L (37-47) % MCV 90.4 (80-100) fL MCH 30.2 (25-34) pg MCHC 33.4 (32-36) g/dL RDW Std Deviation 45.2 (36.4-46.3) fL RDW Coeff of Harpreet 13.6 (11.5-14.5) % Plt Count 222 (130-400) K/uL MPV 9.9 (7.4-10.4) fL Immature Gran % (Auto) 0.3 % Neut % (Auto) 91.2 % Lymph % (Auto) 4.4 % [place] % (Auto) 4.0 % Eos % (Auto) 0.0 % Baso % (Auto) 0.1 % Immature Gran # (Auto) 0.03 H (0.00-0.02) K/uL Neut # (Auto) 10.04 H (1.4-6.5) K/uL Lymph # (Auto) 0.48 L (1.2-3.4) K/uL [place] # (Auto) 0.44 (0.11-0.59) K/uL Eos # (Auto) 0.00 (0-0.5) K/uL Baso # (Auto) 0.01 (0-0.2) K/uL PT (9.0-12.0) Seconds INR (0.9-1.1) Sodium (136-145) mmol/L Potassium (3.5-5.1) mmol/L Chloride (98-107) mmol/L Carbon Dioxide (21-32) mmol/L Anion Gap (3-11) BUN (7-18) mg/dl Creatinine (0.6-1.2) mg/dl Est Cr Clr Drug Dosing Est GFR ( Amer) Est GFR (Non-Af Amer) BUN/Creatinine Ratio (10-20) Glucose (70-99) mg/dl Estimat Average Glucose mg/dl Hemoglobin A1c (4.5-5.6) % Calcium (8.5-10.1) mg/dl Magnesium (1.8-2.4) mg/dl Total Bilirubin (0.2-1) mg/dl AST (15-37) U/L ALT (12-78) U/L Alkaline Phosphatase (45-117) U/L Total Protein (6.4-8.2) gm/dl Albumin (3.4-5.0) gm/dl Globulin (2.5-4.0) gm/dl Albumin/Globulin Ratio (0.9-2) Lipase (73-393) U/L Urine Color Urine Appearance (Clear) Urine pH (4.5-7.5) Ur Specific [place] (1.000-1.030) Urine Protein (Negative) Urine Glucose (UA) (Negative) Urine Ketones (Negative) Urine Blood (Negative) Urine Nitrite (Negative) Urine Bilirubin (Negative) Urine Urobilinogen (Negative) Ur Leukocyte Esterase (Negative) Urine RBC (0-4) /hpf Urine WBC (0-5) /hpf Ur Epithelial Cells (0-5) /lpf Ur Renal Epithelial Cell (0-5) /lpf Urine Bacteria (Negative) Urine Yeast (None Prsent) Diagnostic Findings CT SCAN OF THE ABDOMEN AND PELVIS WITHOUT CONTRAST CLINICAL HISTORY: Abdominal pain and vomiting. History of small bowel obstruction. COMPARISON STUDY: No previous studies for comparison. TECHNIQUE: CT scan of the abdomen and pelvis was performed from the lung bases to the proximal femurs. Images are reviewed in the axial, sagittal, and coronal planes. IV contrast was not administered for this examination. A dose lowering technique was utilized adhering to the principles of ALARA. CT DOSE: 1574.23 mGy.cm FINDINGS: Lower chest: There is left lower lobe atelectasis/consolidation. Right lower lobe atelectatic changes are also evident. There is a small hiatal hernia. There is a trace left pleural effusion. Liver: The unenhanced liver is normal in size, contour, and attenuation. There is no intrahepatic biliary ductal dilatation. Gallbladder: Not visualized and presumed surgically absent Spleen: Normal in size and attenuation. Pancreas: Unremarkable. Adrenal glands: Unremarkable. Kidneys: No renal, ureteral, or bladder calculi are visualized. There is a 12 mm left renal cyst. Bowel: There are multiple dilated small bowel loops containing air-fluid levels. The colon is relatively decompressed. The findings are consistent with a small bowel obstruction. There is minimal infiltration of the mesenteric fat within the right lower quadrant. There are multiple colonic diverticula. There are no findings to indicate acute diverticulitis. The appendix is not visualized. Peritoneum: There is no intraperitoneal free air or abdominal ascites. Vasculature: The abdominal aorta is normal in course and caliber. Adenopathy: None. Pelvic viscera: The uterus is surgically absent. The bladder is mildly distended. Skeletal structures: No destructive osseous lesions are seen. IMPRESSION: 1. Small bowel obstructive pattern with mild right lower quadrant mesenteric edema 2. Hiatal hernia with debris contained within distal esophagus 3. No renal, ureteral, or bladder calculi identified 4. Diverticulosis. No evidence of acute diverticulitis 5. Nonvisualization of the appendix 6. Surgically absent gallbladder and uterus
[2018-06-03] MEDS: LORazepam 0.25 MG/0.5 ML VIAL IV SCH (22:29)
[2018-06-04] MEDS: SODIUM CHLORIDE 0.9% 1000ML 1,000 ML IV SCH (00:05)
[2018-06-04] MEDS: metroNIDAZOLE 500 MG/100 ML BAG IV SCH ×3 (03:57→20:59)
[2018-06-04] MEDS: CIPROFLOXACIN 400 MG/200 ML BAG IV SCH ×2 (03:57→15:56)
[2018-06-04 07:00] LABS: BUN Creatinine Ratio 29.8 (10-20); Calcium 7.7 mg/dl (8.5-10.1); Creatinine Clr Calc Pharmacy 51.4 ml/min; Est GFR (African American) 57.2; Est GFR (Non-African American) 49.4; Magnesium 1.8 mg/dl (1.8-2.4); Potassium 3.2 mmol/L (3.5-5.1)
[2018-06-04] MEDS: POTASSIUM CHLORIDE / WTR 10 MEQ/100 ML PLCT IV SCH ×2 (09:10→10:11)
[2018-06-04] MEDS: ENOXAPARIN INJ 40 MG/0.4 ML SYR SQ SCH (09:40)
--- NOTE | 2018-06-04 11:59 | XRay Report ---
XR KUB CLINICAL HISTORY: Abdominal pain and vomiting. History of small bowel obstruction. COMPARISON STUDY: CT scan dated 06/03/2018 FINDINGS: The study was performed in a portable fashion and is moderately limited from a technical st andpoint. The diaphragms are not included on this study. There are several small bowel loops at the u pper limits of normal in diameter. IMPRESSION: 1. Technically limited portable study 2. No conventional radiographic evidence of a high-grade small bowel obstruction 3. Several small bowel loops at the upper limits of normal in diameter Electronically signed by: Darrell Mcgovern M.D. 06/04/2018 11:58 AM
[2018-06-04] MEDS: HEPARIN 100 UNIT/ML 5ML FLUSH FLUSH PRN ×2 (12:56→18:08)
--- NOTE | 2018-06-04 16:14 | Hospitalist Progress Note ---
Date of Service June 04, 2018 Assessment & Plan (1) Anxiety: (2) Dementia: (3) Benign essential hypertension: (4) Elevated serum creatinine: (5) Vomiting: (6) CKD (chronic kidney disease) stage 3, GFR 30-59 ml/min: (7) Small bowel obstruction: 73-year-old female Was admitted because of a bowel obstruction associated with intractable vomiting and abdominal pain, Per report, patient has had at least 10 instances Of bowel obstructionin her lifetime. Increased risk factors include prior abdominal surgeries. Bowel obstruction, stable or improving pt removed NG tube by staff first day of admission because patient was no more nausea vomiting abdominal was soft nontender, did not reinsert it Patient continued to do stable, KUB was done: No obvious obstruction Continue with current care, surgery input appreciated -N.p.o. -Zofran PRN for nausea -Dilaudid as needed for pain -Continue ciprofloxacin and Flagyl empiric antibiotics in setting of mild leukocytosis and obstruction. Acute kidney injuryon CKD, improving/resolving Hypokalemia replaced Possible UTI: It is covered by Tran, We will follow culture results Mild accelerated hypertension, will continue follow-up Dementia anxiety, stable continue current medication CODE STATUS: Full code Increase activity, PT OT, continue IV fluid, case packer for discharge plan Subjective During the same as yesterday after she removed her NG tube prior to No nausea vomiting no abdominal pain, No bowel movement, or passing gas yet Review of system is limited because patient has dementia No fever and chill Denies chest pain Denies cough or sputum Physical Exam Vital Signs (Past 24 Hours): Last Vital Signs Temp 36.8 C 06/04/18 15:18 Pulse 94 H 06/04/18 15:18 Resp 16 06/04/18 15:18 BP 157/74 H 06/04/18 15:18 Pulse Ox 96 06/04/18 15:18 Physical Exam: General Appearance: WD/WN, pleasant, and mild confused, no apparent distress, NG tube was in place, Eyes: normal inspection, PERRL, EOMI, sclerae normal ENT: normal ENT inspection, hearing grossly normal, pharynx normal Neck: supple, no adenopathy, thyroid normal, no JVD, no carotid bruits, trachea midline Respiratory/Chest: chest non-tender, normal breath sounds, no respiratory d istress, no accessory muscle use, breath sounds, rales, wheezing Cardiovascular: regular rate, rhythm, no JVD, no murmur Abdomen: bowel sound+, non tender, soft, no organomegaly, Extremities: normal range of motion, non-tender, normal inspection, no pedal edema, no calf tenderness, normal capillary refill, pelvis stable, joint has no limited range of motion, capillary refill is normal, no cyanosis clubbing Neurologic/Psychiatric: 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 as tested, no motor/sensory deficits, alert, normal mood/affect, Skin: normal color, warm/dry, no rash Lymphatic: no adenopathy Results & Data Laboratory Results Laboratory Results - last 24 hr 06/04/18 05:44 Sodium 140 Potassium 3.2 L Chloride 107 Carbon Dioxide 24 Anion Gap 9.0 BUN 33 H Creatinine 1.12 Est Cr Clr Drug Dosing 51.4 Est GFR ( Amer) 57.2 Est GFR (Non-Af Amer) 49.4 BUN/Creatinine Ratio 29.8 H Glucose 99 Calcium 7.7 L Phosphorus 3.0 Magnesium 1.8 Microbiology 06/03/18 09:45 Urine,Clean Catch Urine Culture - Final More than three types of organisms present, all high counts mixed probable skin amy - No further identifications or sensitivities to follow.
[2018-06-04] MEDS: LORazepam 0.25 MG/0.5 ML VIAL IV PRN (16:22)
--- NOTE | 2018-06-04 19:13 | Surgery Progress Note ---
Date of Service June 04, 2018 Assessment & Plan (1) Small bowel obstruction: Clinically remains improved Having small bowel movements Consider starting sips of clear liquids No evidence of peritonitis. No indication for surgical intervention at this time. Subjective Denies nausea and vomiting Stated that she had pain in her abdomen but she could not be more specific Had small bowel movement No flatus Physical Exam Vital Signs (Past 24 Hours): Last Vital Signs Temp 36.8 C 06/04/18 15:18 Pulse 94 H 06/04/18 15:18 Resp 16 06/04/18 15:18 BP 157/74 H 06/04/18 15:18 Pulse Ox 96 06/04/18 15:18 Gastrointestinal (Abdomen): Inspection/Auscultation: normal bowel sounds; abdomen not distended Percussion/Palpation: abdomen soft; abdomen nontender
[2018-06-04] MEDS: LORazepam 0.25 MG/0.5 ML VIAL IV SCH (22:27)
[2018-06-05] MEDS: HEPARIN 100 UNIT/ML 5ML FLUSH FLUSH PRN (06:26)
[2018-06-05 07:19] LABS: Albumin Level 2.6 gm/dl (3.4-5.0); BUN Creatinine Ratio 29.6 (10-20); Calcium 8.1 mg/dl (8.5-10.1); Creatinine Clr Calc Pharmacy 55.9 ml/min; Est GFR (African American) 63.3; Est GFR (Non-African American) 54.6; Magnesium 1.8 mg/dl (1.8-2.4); Potassium 2.9 mmol/L (3.5-5.1)
[2018-06-05 07:26] LABS: Albumin Globulin Ratio 0.9 (0.9-2); Bilirubin,Total 0.5 mg/dl (0.2-1); Globulin 2.8 gm/dl (2.5-4.0); Phosphorus 2.4 mg/dl (2.5-4.9); Total Protein 5.4 gm/dl (6.4-8.2)
[2018-06-05 09:05] LABS: Basophils # (auto) 0.02 K/uL (0-0.2); Basophils % (auto) 0.7 %; Eosinophils # (auto) 0.02 K/uL (0-0.5); Eosinophils % (auto) 0.7 %; Hematocrit (blood only) 23.6 % (37-47); Hemoglobin 7.8 g/dL (12.0-16.0); Immature Granulocytes # (auto) 0.01 K/uL (0.00-0.02); Immature Granulocytes % (auto) 0.4 %; Lymphocytes # (auto) 0.47 K/uL (1.2-3.4); Lymphocytes % (auto) 16.7 %; Mean Corpuscular Volume 91.8 fL (80-100); Mean Platelet Volume 10.2 fL (7.4-10.4); Monocytes # (auto) 0.28 K/uL (0.11-0.59); Neutrophils # (auto) 2.01 K/uL (1.4-6.5); Neutrophils % (auto) 71.5 %; Platelet Count 182 K/uL (130-400); RDW Standard Deviation 46.2 fL (36.4-46.3); Red Blood Count 2.57 M/uL (4.2-5.4); White Blood Count 2.81 K/uL (4.8-10.8)
[2018-06-05 09:06] LABS: Mean Corpuscular Hgb Conc 33.1 g/dL (32-36)
[2018-06-05 09:31] LABS: RBC Morphology Unremarkable
--- NOTE | 2018-06-05 09:44 | Surgery Progress Note ---
Date of Service June 05, 2018 Assessment & Plan (1) Small bowel obstruction: Feeling better Peristalsis has returned Obstruction has resolved Start clear liquid diet Present on Admission?: Yes Subjective Feels better today Denies nausea and vomiting Has had multiple bm's Physical Exam Vital Signs (Past 24 Hours): Last Vital Signs Temp 36.9 C 06/05/18 08:00 Pulse 70 06/05/18 08:00 Resp 20 06/05/18 08:00 BP 138/70 06/05/18 08:00 Pulse Ox 97 06/05/18 08:00 Gastrointestinal (Abdomen): Inspection/Auscultation: normal bowel sounds; abdomen not distended Percussion/Palpation: abdomen soft; abdomen nontender Results & Data Diagnostic Findings [place], [place] [phone] XRay Report Patient: IAN MCDONALD Date: 06/03/18 MR#: [id number]: 50 LE[address]AN Acct ID:[id number]: [address] Date: 1945[facility] Zip: [place] [address] Age: 73Location: 3W Sex: F Room/Bed: [facility] Att Phy: Jaime Smith MD, PhDDiagnosis: [place] Phy: Earle Ornelas D.O.Service Date: 06/04/18 Fam Phy: Interpreting Phy: Darrell Mcgovern MD Admit Phy: Nivia Domingo MD Ordering Phy: Jaime Smith MD, PhD cc: ~ XR KUB CLINICAL HISTORY: Abdominal pain and vomiting. History of small bowel obstruction. COMPARISON STUDY: CT scan dated 06/03/2018 FINDINGS: The study was performed in a portable fashion and is moderately limited from a technical standpoint. The diaphragms are not included on this study. There are several small bowel loops at the upper limits of normal in diameter. IMPRESSION: 1. Technically limited portable study 2. No conventional radiographic evidence of a high-grade small bowel obstruction 3. Several small bowel loops at the upper limits of normal in diameter
[2018-06-05] MEDS: ENOXAPARIN INJ 40 MG/0.4 ML SYR SQ SCH (10:41)
[2018-06-05] MEDS: POTASSIUM CHLORIDE / WTR 10 MEQ/100 ML PLCT IV SCH ×4 (10:57→13:52)
[2018-06-05] MEDS: LORazepam 0.25 MG/0.5 ML VIAL IV PRN ×2 (11:06→19:35)
[2018-06-05] MEDS ORDERED: LORazepam 0.5 MG/1 ML VIAL IV ONE (12:30)
[2018-06-05 15:43] LABS: Hematocrit (blood only) 28.3 % (37-47); Hemoglobin 9.4 g/dL (12.0-16.0)
[2018-06-05] MEDS ORDERED: LOPERAMIDE HCL 2 MG CAP PO PRN (17:39)
--- NOTE | 2018-06-05 17:39 | Hospitalist Progress Note ---
Date of Service June 05, 2018 Assessment & Plan (1) Anxiety: (2) Dementia: (3) Benign essential hypertension: (4) Elevated serum creatinine: (5) Vomiting: (6) CKD (chronic kidney disease) stage 3, GFR 30-59 ml/min: (7) Small bowel obstruction: With hemoglobin 73-year-old female Was admitted because of a bowel obstruction associated with intractable vomiting and abdominal pain, Per report, patient has had at least 10 instances Of bowel obstructionin her lifetime. Increased risk factors include prior abdominal surgeries. Bowel obstruction, resolved Advised diet as tolerated There was minimal leukocytosis upon admission, GI source of infection, being on ciprofloxacin and Flagyl empiric antibiotics I discontinue it because patient now has no more evidence of infection, and patient has diarrhea not which increased in risk of C. difficile Hemoccult positive was anemic, Hemoglobin 7.8 from 9.1, possible GI bleeding, Follow-up H and H, GI consult Stool C. difficile is negative, okay to give Imodium if has diarrhea, add probiotic Acute kidney injuryon CKD, improving/resolving Hypokalemia replaced No evidence of UTI , antibiotic stop Mild accelerated hypertension, will continue follow-up, hydralazine as needed, Dementia anxiety, stable continue current medication CODE STATUS: Full code Increase activity, PT OT, discontinue IV fluid, family preservation caseworker for discharge plan Subjective Having bowel movement, and tolerated clear liquid diet, later this am she was confused and combative, required Ativan Positive diarrhea Review of system is limited because patient has dementia No fever and chill Denies chest pain Denies cough or sputum Physical Exam Vital Signs (Past 24 Hours): Last Vital Signs Temp 36.7 C 06/05/18 15:19 Pulse 87 06/05/18 15:19 Resp 17 06/05/18 15:19 BP 159/84 H 06/05/18 15:19 Pulse Ox 100 06/05/18 15:19 Physical Exam: General Appearance: WD/WN, pleasant , no confused, no apparent distress, NG tube was in place, Later I heard she was yelling out and anxious, patient has family present Eyes: normal inspection, PERRL, EOMI, sclerae normal ENT: normal ENT inspection, hearing grossly normal, pharynx normal Neck: supple, no adenopathy, thyroid normal, no JVD, no carotid bruits, trachea midline Respiratory/Chest: chest non-tender, normal breath sounds, no respiratory distress, no accessory muscle use, breath sounds, rales, wheezing Cardiovascular: regular rate, rhythm, no JVD, no murmur Abdomen: bowel sound+, non tender, soft, no organomegaly, Extremities: normal range of motion, non-tender, normal inspection, no pedal edema, no calf tenderness, normal capillary refill, pelvis stable, joint has no limited range of motion, capillary refill is normal, no cyanosis clubbing Neurologic/Psychiatric: lay out and detail drafter II-XII nml as tested, no motor/sensory deficits, alert, normal mood/affect, Skin: normal color, warm/dry, no rash Lymphatic: no adenopathy Results & Data Laboratory Results Laboratory Results - last 24 hr 06/05/18 06/05/18 06/05/18 06:26 06:27 10:40 WBC 2.81 L RBC 2.57 L Hgb 7.8 L Hct 23.6 L MCV 91.8 MCH 30.4 MCHC 33.1 RDW Std Deviation 46.2 RDW Coeff of Harpreet 14.0 Plt Count 182 MPV 10.2 Immature Gran % (Auto) 0.4 Neut % (Auto) 71.5 Lymph % (Auto) 16.7 [place] % (Auto) 10.0 Eos % (Auto) 0.7 Baso % (Auto) 0.7 Immature Gran # (Auto) 0.01 Neut # (Auto) 2.01 Lymph # (Auto) 0.47 L [place] # (Auto) 0.28 Eos # (Auto) 0.02 Baso # (Auto) 0.02 RBC Morphology Unremarkable Sodium 144 Potassium 2.9 L Chloride 111 H Carbon Dioxide 26 Anion Gap 7.0 BUN 31 H Creatinine 1.03 Est Cr Clr Drug Dosing 55.9 Est GFR ( Amer) 63.3 Est GFR (Non-Af Amer) 54.6 BUN/Creatinine Ratio 29.6 H Glucose 76 Calcium 8.1 L Phosphorus 2.4 L Magnesium 1.8 Total Bilirubin 0.5 AST 25 ALT 21 Alkaline Phosphatase 58 Total Protein 5.4 L Albumin 2.6 L Globulin 2.8 Albumin/Globulin Ratio 0.9 Stool Occult Bld Scrn Positive H Stl C. diff Tox B Gene 06/05/18 06/05/18 13:55 15:34 WBC RBC Hgb 9.4 L Hct 28.3 L MCV MCH MCHC RDW Std Deviation RDW Coeff of Harpreet Plt Count MPV Immature Gran % (Auto) Neut % (Auto) Lymph % (Auto) [place] % (Auto) Eos % (Auto) Baso % (Auto) Immature Gran # (Auto) Neut # (Auto) Lymph # (Auto) [place] # (Auto) Eos # (Auto) Baso # (Auto) RBC Morphology Sodium Potassium Chloride Carbon Dioxide Anion Gap BUN Creatinine Est Cr Clr Drug Dosing Est GFR ( Amer) Est GFR (Non-Af Amer) BUN/Creatinine Ratio Glucose Calcium Phosphorus Magnesium Total Bilirubin AST ALT Alkaline Phosphatase Total Protein Albumin Globulin Albumin/Globulin Ratio Stool Occult Bld Scrn Stl C. diff Tox B Gene Neg Cdiff Tox B Gene
--- NOTE | 2018-06-05 20:29 | Consultation Report ---
DATE OF CONSULTATION: 06/05/2018 GASTROENTEROLOGY CONSULTATION RACE: . ATTENDING PHYSICIAN: Jaime Smith MD. CONSULTING PHYSICIAN: Arturo Negrete DO. REASON FOR CONSULTATION: Heme-positive stool and anemia. HISTORY OF PRESENT ILLNESS: Lynn Ibarra is a 73-year-old female who presented to the Department of Emergency Medicine on 06/03 with complaints of stomach pain and vomiting. She does have a history of approximately 10 small bowel obstructions in the past, which are felt most likely to be secondary to adhesions caused by a prior hysterectomy for cervical cancer as well as a cholecystectomy. She underwent a CT scan in the Department of Emergency Medicine upon her arrival and was noted to have evidence of a small-bowel obstruction and mild right lower quadrant mesenteric edema, hiatal hernia with debris contained within the distal esophagus and the aforementioned surgically absent gallbladder and uterus. She was also noted to have laboratory studies on arrival including a hemoglobin of 10.1 and hematocrit of 30.2. Her white blood cell count was 11.0 and her platelet count was 222. She was admitted and did have surgical consultation by Dr. Hawkins. By the time that he had seen the patient, her symptoms had greatly improved and she was having bowel movements. He did recommend keeping her n.p.o. A KUB was performed on 06/04 and noted no radiographic evidence of a high-grade small-bowel obstruction and several small bowel loops at the upper limits of normal in diameter were noted. She did have a slight decline in her H and H to 9.4 and 28.3 on today's value. She was noted to be heme-positive on 06/05. The patient's history is limited by the fact that she is demented. She is only alert to person at present. I did receive information from the patient's who was at the bedside as well as nursing staff as well. The patient was able to answer simple questions and denied any abdominal pain, nausea, vomiting and did state that she was tolerating a liquid diet at present. She had no further complaints. PAST MEDICAL HISTORY: Significant for a history of ovarian cancer. PAST SURGICAL HISTORY: Includes a cholecystectomy as well as a hysterectomy with bilateral oophorectomy. ALLERGIES: THE PATIENT HAS ALLERGIES TO ALCOHOL WELL IODINATED CONTRAST DYE. MEDICATIONS AT PRESENT: Include Ativan 0.25 mg IV q.6 hours p.r.n. anxiety or agitation, hydralazine 10 mg IV q.4 p.r.n. high blood pressure, hydromorphone 1 mg IV q.2 p.r.n. pain, Zofran 4 mg IV q.6 p.r.n. nausea, Cipro 400 mg IV q.12 hours, Lovenox 40 mg subQ q.24 hours, Flagyl 500 mg IV q.8 hours. SOCIAL AND FAMILY HISTORY: She is . She has never been a smoker as per her ex- who is at the bedside. Rest of the social history and family history were unobtainable secondary to the patient's baseline dementia. REVIEW OF SYSTEMS: Unobtainable. PHYSICAL EXAMINATION: VITAL SIGNS: Temp 36.7, pulse 87, respirations 17, blood pressure 159/84, pulse ox 100% on room air. GENERAL: She is awake, demented, and cooperative. HEAD: Normocephalic, atraumatic. EYES: Pupils equally round. Extraocular muscles are intact. ENT: External evaluation of ears and nose is normal. CHEST: Decreased breath sounds in bilateral bases. CARDIOVASCULAR SYSTEM: Regular rate and rhythm. ABDOMEN: Soft, nontender, nondistended. Positive bowel sounds. EXTREMITIES: No clubbing, cyanosis, or edema. LABORATORY STUDIES AND RADIOGRAPHIC STUDIES: As reviewed in the HPI. IMPRESSION: A 73-year-old female with recurrent small-bowel obstruction, most likely secondary to adhesions, dementia and anemia with heme-positive stool. PLAN: At the present time, I do not believe that the patient should undergo any invasive workup secondary to her recent small-bowel obstruction. I will add Protonix 40 mg IV b.i.d. as well as Carafate 1 g p.o. q.i.d. for 10 days to her course and we will allow her to follow up with her outpatient physician, Dr. Carter, of [place], who has previously performed colonoscopy and upper endoscopy on her in the past. I will follow her clinical course and make further recommendations as needed. Once again, thanks for allowing me to participate in the care of this patient. If you have any further questions, please do not hesitate in contacting me. YENI
[2018-06-05] MEDS ORDERED: SACCHAROMYCES BOULARDII 250 MG CAP PO SCH (21:00)
[2018-06-05] MEDS: SUCRALFATE 1 GM/10 ML UDC PO SCH (21:41)
[2018-06-05] MEDS: PANTOprazole 40 MG TAB PO SCH (21:41)
[2018-06-05] MEDS: LORazepam 0.25 MG/0.5 ML VIAL IV SCH (21:41)
[2018-06-06 05:38] LABS: Hematocrit (blood only) 25.4 % (37-47); Hemoglobin 8.4 g/dL (12.0-16.0); Mean Corpuscular Hgb Conc 33.1 g/dL (32-36); Mean Platelet Volume 9.5 fL (7.4-10.4); Platelet Count 180 K/uL (130-400); RDW Coefficient of Variation 13.9 % (11.5-14.5); RDW Standard Deviation 46.3 fL (36.4-46.3); Red Blood Count 2.79 M/uL (4.2-5.4); White Blood Count 3.12 K/uL (4.8-10.8)
[2018-06-06 06:02] LABS: Albumin Globulin Ratio 0.9 (0.9-2); Albumin Level 2.8 gm/dl (3.4-5.0); BUN Creatinine Ratio 22.3 (10-20); Bilirubin,Total 0.5 mg/dl (0.2-1); Calcium 7.8 mg/dl (8.5-10.1); Creatinine Clr Calc Pharmacy 58.2 ml/min; Est GFR (African American) 66.4; Est GFR (Non-African American) 57.3; Globulin 3.1 gm/dl (2.5-4.0); Potassium 3.4 mmol/L (3.5-5.1); Total Protein 5.9 gm/dl (6.4-8.2)
[2018-06-06] MEDS: PANTOprazole 40 MG TAB PO SCH ×2 (07:55→21:34)
[2018-06-06] MEDS: SUCRALFATE 1 GM/10 ML UDC PO SCH ×4 (07:55→21:35)
[2018-06-06] MEDS ORDERED: POTASSIUM CHLORIDE 10 MEQ TABCR PO STA (08:55)
--- NOTE | 2018-06-06 09:35 | Surgery Progress Note ---
Date of Service June 06, 2018 Assessment & Plan (1) Small bowel obstruction: Small bowel obstruction has resolved and patient is tolerating regular diet No evidence of peritonitis No need for surgical intervention at this time Will sign off. Please let us know if there is anything else we can do. Present on Admission?: Yes Subjective Patient feels well today Denies nausea and has not had vomiting Tolerated regular diet Had multiple bowel movements yesterday and is passing flatus Physical Exam Vital Signs (Past 24 Hours): Last Vital Signs Temp 36.8 C 06/06/18 08:07 Pulse 81 06/06/18 08:07 Resp 14 06/06/18 08:07 BP 159/85 H 06/06/18 08:07 Pulse Ox 98 06/06/18 08:07 Gastrointestinal (Abdomen): Inspection/Auscultation: normal bowel sounds; abdomen not distended Percussion/Palpation: abdomen soft; abdomen nontender
--- NOTE | 2018-06-06 10:42 | Gastroenterology Progress Note ---
Date of Service June 06, 2018 Assessment & Plan (1) Small bowel obstruction: 1. Patient's symptoms have resolved. 2. Tolerating a regular diet. 3. Okay from a GI perspective for D/C if cleared by primary team. Supervising Physician Co-Signing Physician Notes Agree with HENRY Moya Patient is feeling much better today Abd: Soft, NT, ND, +BS Continue supportive care Subjective Patient reports feeling well. No abdominal pain, nausea or vomiting. Tolerating a solid diet. Reports having a bm this morning. No GIB sx. Constitutional: no fever and no chills Respiratory: no dyspnea Cardiovascular: no chest pain Gastrointestinal: as per Subjective / HPI Physical Exam Vital Signs (Past 24 Hours): Last Vital Signs Temp 36.8 C 06/06/18 08:07 Pulse 81 06/06/18 08:07 Resp 14 06/06/18 08:07 BP 159/85 H 06/06/18 08:07 Pulse Ox 98 06/06/18 08:07 Constitutional: WD/WN, vitals as above Respiratory: normal respiratory effort, lungs clear to auscultation Cardiovascular: Rate/Rhythm: regular rate and regular rhythm Gastrointestinal (Abdomen): Inspection/Auscultation: normal bowel sounds Percussion/Palpation: abdomen soft; abdomen nontender Psychiatric: A+Ox3, euthymic affect Results & Data Laboratory Results Abnormal lab results 06/05/18 06/05/18 06/06/18 Range/Units 10:40 15:34 05:28 WBC 3.12 L (4.8-10.8) K/uL RBC 2.79 L (4.2-5.4) M/uL Hgb 9.4 L 8.4 L (12.0-16.0) g/dL Hct 28.3 L 25.4 L (37-47) % Potassium (3.5-5.1) mmol/L Chloride (98-107) mmol/L BUN (7-18) mg/dl BUN/Creatinine Ratio (10-20) Calcium (8.5-10.1) mg/dl Total Protein (6.4-8.2) gm/dl Albumin (3.4-5.0) gm/dl Stool Occult Bld Scrn Positive H (Negative) 06/06/18 Range/Units 05:28 WBC (4.8-10.8) K/uL RBC (4.2-5.4) M/uL Hgb (12.0-16.0) g/dL Hct (37-47) % Potassium 3.4 L D (3.5-5.1) mmol/L Chloride 109 H (98-107) mmol/L BUN 22 H (7-18) mg/dl BUN/Creatinine Ratio 22.3 H (10-20) Calcium 7.8 L (8.5-10.1) mg/dl Total Protein 5.9 L (6.4-8.2) gm/dl Albumin 2.8 L (3.4-5.0) gm/dl Stool Occult Bld Scrn (Negative)
[2018-06-06] MEDS ORDERED: ALPRAZolam 0.5 MG TABLET PO PRN (11:25)
--- NOTE | 2018-06-06 16:58 | Hospitalist Progress Note ---
Date of Service June 06, 2018 Assessment & Plan (1) Anxiety: (2) Dementia: (3) Benign essential hypertension: (4) Elevated serum creatinine: (5) Vomiting: (6) CKD (chronic kidney disease) stage 3, GFR 30-59 ml/min: (7) Small bowel obstruction: With hemoglobin 73-year-old female Was admitted because of a bowel obstruction associated with intractable vomiting and abdominal pain, Per report, patient has had at least 10 instances Of bowel obstructionin her lifetime. Increased risk factors include prior abdominal surgeries. Bowel obstruction, resolved Advised diet as tolerated There was minimal leukocytosis upon admission, GI source of infection, being on ciprofloxacin and Flagyl empiric antibiotics ABX discontinued it because patient now has no more evidence of infection, and patient has diarrhea not which increased in risk of C. difficile Possible GI bleeding with Hemoccult positive was anemic, Follow-up H and H, GI consulted, Hemoglobin dropped from 9.4-8.4 Stool C. difficile is negative discontinue Imodium Acute kidney injuryon CKD, improving/resolving Hypokalemia replaced No evidence of UTI , antibiotic stop Still Mild accelerated hypertension, will continue follow-up, hydralazine as needed, Dementia anxiety, stable continue current medication CODE STATUS: Full code Increase activity, family wanted to take patient home no matter what, per report I heard patient has 24/ 7 coverage at home , With their own risk Because of hemoglobin significant drop, hypokalemia, accelerated hypertension, and patient generally look not well, therefore I keep her 1 day more Subjective was confused and combative, required Ativan yesterday Today is totally resolved, no more confused combative, Has bowel movement, Review of system is limited because patient has dementia No fever and chill Denies chest pain Denies cough or sputum Physical Exam Vital Signs (Past 24 Hours): Last Vital Signs Temp 36.9 C 06/06/18 15:06 Pulse 82 06/06/18 15:06 Resp 16 06/06/18 15:06 BP 150/79 H 06/06/18 15:06 Pulse Ox 100 06/06/18 15:06 Physical Exam: general Appearance: WD/WN, pleasant , no confused, no apparent distress, Eyes: normal inspection, PERRL, EOMI, sclerae normal ENT: normal ENT inspection, hearing grossly normal, pharynx normal Neck: supple, no adenopathy, thyroid normal, no JVD, no carotid bruits, trachea midline Respiratory/Chest: chest non-tender, normal breath sounds, no respiratory distress, no accessory muscle use, breath sounds, rales, wheezing Cardiovascular: regular rate, rhythm, no JVD, no murmur Abdomen: bowel sound+, non tender, soft, no organomegaly, Extremities: normal range of motion, non-tender, normal inspection, joint has no limited range of motion, capillary refill is normal, no cyanosis clubbing 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/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: 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, no motor/sensory deficits, alert, normal mood/affect, Skin: normal color, warm/dry, no rash Lymphatic: no adenopathy Results & Data Laboratory Results Laboratory Results - last 24 hr 06/05/18 06/06/18 06/06/18 18:04 05:28 05:28 WBC 3.12 L RBC 2.79 L Hgb 8.4 L Hct 25.4 L MCV 91.0 MCH 30.1 MCHC 33.1 RDW Std Deviation 46.3 RDW Coeff of Harpreet 13.9 Plt Count 180 MPV 9.5 Sodium 140 Potassium 3.4 L D Chloride 109 H Carbon Dioxide 28 Anion Gap 3.0 BUN 22 H Creatinine 0.99 Est Cr Clr Drug Dosing 58.2 Est GFR ( Amer) 66.4 Est GFR (Non-Af Amer) 57.3 BUN/Creatinine Ratio 22.3 H Glucose 88 Calcium 7.8 L Magnesium 1.9 Total Bilirubin 0.5 AST 29 ALT 26 Alkaline Phosphatase 66 Total Protein 5.9 L Albumin 2.8 L Globulin 3.1 Albumin/Globulin Ratio 0.9
--- NOTE | 2018-06-06 20:23 | Ultrasound Report ---
ULTRASOUND LEFT LOWER EXTREMITY VENOUS CLINICAL HISTORY: Left leg pain. COMPARISON STUDY: No priors. TECHNIQUE: Real-time, grayscale, and color Doppler sonography of the deep veins of the left lower ext remity was performed from the inguinal crease to the calf. Compression and augmentation were utilized . FINDINGS: There is no sonographic evidence of deep venous thrombosis identified in the left lower ext remity. The common femoral, superficial femoral, and popliteal veins are patent and normally compress ible. The greater saphenous vein and the profunda femoris vein at the junction with the common femora l vein are clear. The visualized calf veins are patent. A small popliteal cyst measures 3.1 x 1.1 x 1 .9 cm. IMPRESSION: 1. There is no sonographic evidence of deep venous thrombosis identified in the left lower extremity. 2. Small popliteal cyst. Electronically signed by: Jose Pierre M.D. 06/06/2018 8:22 PM
[2018-06-06] MEDS: ACETAMINOPHEN 325 MG TAB PO PRN (21:34)
[2018-06-06] MEDS: LORazepam 0.25 MG/0.5 ML VIAL IV SCH (21:35)
[2018-06-07] MEDS: ACETAMINOPHEN 325 MG TAB PO PRN (05:48)
[2018-06-07 06:33] LABS: Partial Thromboplastin Ratio 1.3; Partial Thromboplastin Time 34.2 Seconds (21.0-31.0)
[2018-06-07 07:31] LABS: Basophils # (auto) 0.02 K/uL (0-0.2); Basophils % (auto) 0.6 %; Eosinophils # (auto) 0.05 K/uL (0-0.5); Eosinophils % (auto) 1.6 %; Hematocrit (blood only) 25.2 % (37-47); Hemoglobin 8.4 g/dL (12.0-16.0); Immature Granulocytes # (auto) 0.01 K/uL (0.00-0.02); Immature Granulocytes % (auto) 0.3 %; Lymphocytes # (auto) 0.56 K/uL (1.2-3.4); Lymphocytes % (auto) 17.4 %; Mean Corpuscular Volume 92.3 fL (80-100); Monocytes % (auto) 9.3 %; Neutrophils # (auto) 2.28 K/uL (1.4-6.5); Neutrophils % (auto) 70.8 %; Platelet Count 178 K/uL (130-400); RDW Coefficient of Variation 14.1 % (11.5-14.5); Red Blood Count 2.73 M/uL (4.2-5.4); White Blood Count 3.22 K/uL (4.8-10.8)
[2018-06-07 07:36] LABS: Mean Corpuscular Hgb Conc 33.3 g/dL (32-36)
[2018-06-07 07:52] LABS: BUN Creatinine Ratio 19.4 (10-20); Calcium 7.8 mg/dl (8.5-10.1); Creatinine Clr Calc Pharmacy 46.4 ml/min; Est GFR (African American) 50.6; Est GFR (Non-African American) 43.7; Magnesium 1.7 mg/dl (1.8-2.4); Potassium 3.6 mmol/L (3.5-5.1)
[2018-06-07 07:53] LABS: RBC Morphology Unremarkable
[2018-06-07] MEDS ORDERED: CHOLECALCIFEROL 1,000 UNITS TAB PO SCH (09:00)
[2018-06-07] MEDS ORDERED: ATORVASTATIN 40 MG TAB PO SCH (09:00)
[2018-06-07] MEDS ORDERED: DOCUSATE SODIUM 100 MG CAP PO SCH (09:00)
[2018-06-07] MEDS ORDERED: LISINOPRIL 10 MG TAB PO SCH (09:00)
[2018-06-07] MEDS ORDERED: FUROSEMIDE 20 MG TAB PO SCH (09:00)
[2018-06-07] MEDS: SUCRALFATE 1 GM/10 ML UDC PO SCH (09:24)
[2018-06-07] MEDS: PANTOprazole 40 MG TAB PO SCH (09:25)
--- NOTE | 2018-06-07 17:03 | Discharge Summary ---
Date of Service June 07, 2018 Admission HPI Per Admitting Provider Kaitlin is a 73-year-old female with past medical history of CKD stage III, history of cervical cancer recurrent status post total hysterectomy, status post cholecystectomy, hypertension, history of lower left extremity DVT, with advanced dementia who presents to the emergency room with HER-2 granddaughters due to intractable vomiting. Vomiting and abdominal pain began suddenly the night prior to admission. Per granddaughters, patient has had at least 10 episodes of small bowel obstruction in her lifetime. 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 No fevers or chills with this, no syncope, no chest pain. Decreased p.o. intake. No diarrhea. Past medical history: As above Past surgical history: As above Social history: Lives at home with 1 of her granddaughters, other granddaughter lives 3 doors down and her daughter also lives close. Does not drink alcohol or smoke. Severely demented. Principal Diagnosis 35 Discharge Data Allergies Allergy/AdvReac Type Severity Reaction Status Date / Time alcohol Allergy Severe Anaphylaxis Verified 06/02/18 22:51 Iodinated Contrast- Oral and Allergy Severe THROAT Verified 06/02/18 22:51 IV Dye JENNIFER SANCHEZ Consultations 06/03/18 01:05 ED Decision to Admit Stat 06/03/18 03:48 Consult General Surgery Routine 06/03/18 06:30 Consult Case Management - Discharge Planning Routine 06/05/18 11:21 Consult Gastroenterology Routine Ordered Studies 06/02/18 23:59 CT abd pelvis wo con Urgent 06/06/18 18:27 US venous doppler LE LT Stat Hospital Course (1) Anxiety: (2) Dementia: (3) Benign essential hypertension: (4) Elevated serum creatinine: (5) Vomiting: (6) CKD (chronic kidney disease) stage 3, GFR 30-59 ml/min: (7) Small bowel obstruction: 73-year-old female Was admitted because of a bowel obstruction associated with intractable vomiting and abdominal pain, Per report, patient has had at least 10 instances Of bowel obstructionin her lifetime. Increased risk factors include prior abdominal surgeries. Bowel obstruction, resolved Advised diet as tolerated, has been tolerating well There was minimal leukocytosis upon admission, GI source of infection, being on ciprofloxacin and Flagyl empiric antibiotics ABX discontinued it because patient now has no more evidence of infection, and patient has diarrhea not which increased in risk of C. difficile Possible GI bleeding with Hemoccult positive was anemic, Follow-up H and H, GI consulted, Hemoglobin dropped from 9.4-8.4, today's hemoglobin is stable at 8.4 compared to yesterday, Stool C. difficile is negative, discontinue Imodium Acute kidney injuryon CKD, improving/resolving, however today's creatinine is 1.24 from yesterday 0.9, PCP please follow-up Hypokalemia replaced No evidence of UTI , antibiotic stop was having Mild accelerated hypertension, today's better Dementia, anxiety, stable continue current medication CODE STATUS: Full code Family wanted to take patient home no matter what, per report I heard patient has 24 coverage at home , With their own risk I told pt need to continue oral Protonix 40 mg IV b.i.d. as well as Carafate 1 g p.o. q.i.d. for 10 days (only need 10 days for now), need to follow up with your GI Dr. Carter, of [place], who has previously performed colonoscopy and upper endoscopy on you in the past., and talk to him and follow up with him Subjective upon discharge: no more onfused and combative, tolerate diet, has bowel movement, family reported possible return to baseline No fever and chill Denies chest pain Denies cough or sputum Physical Exam upon discharge, afebrile general Appearance: WD/WN, pleasant , no confused, no apparent distress, Eyes: normal inspection, PERRL, EOMI, sclerae normal ENT: normal ENT inspection, hearing grossly normal, pharynx normal Neck: supple, no adenopathy, thyroid normal, no JVD, no carotid bruits, trachea midline Respiratory/Chest: chest non-tender, normal breath sounds, no respiratory distress, no accessory muscle use, breath sounds, rales, wheezing Cardiovascular: regular rate, rhythm, no JVD, no murmur Abdomen: bowel sound+, non tender, soft, no organomegaly, Extremities: normal range of motion, non-tender, normal inspection, joint has no limited range of motion, capillary refill is normal, no cyanosis clubbing Neurologic/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: 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 tested, no motor/sensory deficits, alert, normal mood/affect, Skin: normal color, warm/dry, no rash Lymphatic: no adenopathy Lab data at discharge: Laboratory Results - last 24 hr 06/07/18 06/07/18 06/07/18 05:49 07:19 07:19 WBC 3.22 L RBC 2.73 L Hgb 8.4 L Hct 25.2 L MCV 92.3 MCH 30.8 MCHC 33.3 RDW Std Deviation 47.0 H RDW Coeff of Harpreet 14.1 Plt Count 178 MPV 9.0 Immature Gran % (Auto) 0.3 Neut % (Auto) 70.8 Lymph % (Auto) 17.4 [place] % (Auto) 9.3 Eos % (Auto) 1.6 Baso % (Auto) 0.6 Immature Gran # (Auto) 0.01 Neut # (Auto) 2.28 Lymph # (Auto) 0.56 L [place] # (Auto) 0.30 Eos # (Auto) 0.05 Baso # (Auto) 0.02 RBC Morphology Unremarkable APTT 34.2 H PTT Ratio 1.3 Sodium 141 Potassium 3.6 Chloride 110 H Carbon Dioxide 26 Anion Gap 5.0 BUN 24 H Creatinine 1.24 H Est Cr Clr Drug Dosing 46.4 Est GFR ( Amer) 50.6 Est GFR (Non-Af Amer) 43.7 BUN/Creatinine Ratio 19.4 Glucose 108 H Calcium 7.8 L Magnesium 1.7 L 06/07/18 07:19 WBC RBC Hgb Hct MCV MCH MCHC RDW Std Deviation RDW Coeff of Harpreet Plt Count MPV Immature Gran % (Auto) Neut % (Auto) Lymph % (Auto) [place] % (Auto) Eos % (Auto) Baso % (Auto) Immature Gran # (Auto) Neut # (Auto) Lymph # (Auto) [place] # (Auto) Eos # (Auto) Baso # (Auto) RBC Morphology APTT PTT Ratio Sodium Potassium Chloride Carbon Dioxide Anion Gap BUN Creatinine Est Cr Clr Drug Dosing Est GFR ( Amer) Est GFR (Non-Af Amer) BUN/Creatinine Ratio Glucose Calcium Magnesium Cancelled Total Time Total Time Spent Total Time Spent (In Minutes): 35 Total Time Includes: Examination of the Patient, Discharge Planning, Medication Reconciliation and Communication With Other Providers Discharge Plan Discharge Items Patient Disposition: Home - Self-Care Reason For Visit: SBO Discharge Diagnosis: SBO Condition: Fair Discharge Goals: Decrease discomfort, Diagnostic testing and Therapeutic intervention Activity: Resume your previous activity Non-emergency contact: Primary Care Provider Call non-emergency contact if: you have any medication questions Follow-up/Referrals: Earle Ornelas [Primary Care Provider] - Diet: Heart Healthy Add Provider Instructions: you have bowel obstruction associated with intractable vomiting and abdominal pain, resolved you Possible have GI bleeding with Hemoccult positive was anemic, Hemoglobin is 8.4 today you need to continue oral Protonix 40 mg IV b.i.d. as well as Carafate 1 g p.o. q.i.d. for 10 days (only need 10 days for now), need to follow up with your GI Dr. Carter, of [place], who has previously performed colonoscopy and upper endoscopy on you in the past., and talk to him and follow up with him you need to follow up with your primary care physician in 1 week, - take medication as instructed, never overdose or any misuse, or take with alcohol, because misuse of medicine may cause organ damage or , call me, or your primary care physician if have questions of discharge medicaitons. - call your primary care physician, or go to local emergency room if has any fever/chill, chest pain, shortness of breathing, nausea/vomiting/abdominal pain, facial droop/slurry speech/local weakness, or if has any questions. - fall precaution - diet as instructed - you need to follow up with your subspecialist, such as Dr. Carter Prescriptions: New sucralfate 100 mg/mL Suspension 10 ml PO QID 30 Days Qty: 30 RF: 0 pantoprazole 40 mg Tablet,Delayed Release (Dr/Ec) 40 mg PO BID 30 Days Qty: 60 RF: 0 Continued atorvastatin 40 mg Tablet 40 mg PO QAM RF: 0 alprazolam 0.5 mg Tablet 0.25 mg PO BID PRN (Reason: ACUTE ANXIETY) RF: 0 potassium chloride 8 mEq Tablet Extended Release 8 meq PO QAM RF: 0 lisinopril 10 mg Tablet 10 mg PO QAM RF: 0 docusate sodium [Colace] 100 mg Capsule 100 mg PO QAM RF: 0 furosemide [Lasix] 20 mg Tablet 20 mg PO QAM RF: 0 memantine 10 mg Tablet 10 mg PO BID RF: 0 cholecalciferol (vitamin D3) [Vitamin D3] 5,000 unit Tablet 5,000 unit PO QAM RF: 0 Discontinued triamterene-hydrochlorothiazid 75-50 mg Tablet 1 tab PO QAM RF: 0 Stand-Alone Forms: [facility] Discharge Orders: Discharge Order (Routine); Ordered 06/07/18 Ordered By: Jaime Smith Admission Data Admit Date/Time: 06/03/18 02:44 Attending Provider: Jaime Smith Admit Provider: Nivia Dominog Primary Care Provider: Earle Ornelas Other Providers: Kulwinder Galvez ; Alal Tuttle ; Joe Eli ; Herbert Jones ; Kevin Briggs Jr ; Feng Dorman ; Francisco Hicks ; Laureen Mccann ; Myke Gutierrez ; Cisco Ruiz Rick D ; Arturo Negrete Service: Medical Other Interventions: Discharge Summary Assessment (RN) Last Done: 06/07/18 11:00 DC Date/Time DO NOT enter until pt leaves facility: 06/07/18 11:33
== END 2018-06-07 11:33 | disposition home or self-care (01) | DRG 389 ==
LOC: ED 22:11 → SUATTDRO 06-03 02:44 → 3W 06-03 02:44